=== PATIENT | male | born 1950 | race Caucasian/White ===

== ENCOUNTER 2025-01-06 09:56 | Emergency (ER) | payer OTHER, SELFPAY ==
--- NOTE | ~2025-01-06 | XR_ITS ---
.EXAMINATION: XR HUMERUS, RIGHT CLINICAL INFORMATION: fall COMPARISON: None available. TECHNIQUE: AP and lateral views of the right humerus. FINDINGS: Degenerative changes in the acromioclavicular joint and the right glenoid. No acute cortical disruption. No gross lytic or blastic lesions. No periosteal bone reaction. XR/XR humerus RT IMPRESSION: No acute fracture, right humerus. Degenerative changes right acromioclavicular joint and right glenoid. Electronically signed by: Gautam Olivares MD 01/06/2025 11:49 AM NICOLE GONZALEZ
--- NOTE | ~2025-01-06 | XR_ITS ---
.EXAMINATION: XR SHOULDER, RIGHT CLINICAL INFORMATION: FALL, UNABLE TO LIFT R ARM, SHOULDER PAIN COMPARISON: None available. TECHNIQUE: AP external rotation, Grashey, scapular Y, and axillary views of the right shoulder. FINDINGS: No acute cortical disruption or malalignment. Degenerative changes in the acromioclavicular joint, glenohumeral joint and greater tuberosity. No lytic or blastic lesions. XR/XR shoulder RT min 2V IMPRESSION: Degenerative changes without acute fracture or dislocation. Electronically signed by: Gautam Olivares MD 01/06/2025 10:50 AM NICOLE GONZALEZ
[2025-01-06 10:27] VITALS: BP 138/70; PULSE 75; RESP 18; TEMP 36.6; O2SAT 96; BMI 25.1
--- NOTE | 2025-01-06 11:01 | ED.EXTPRO ---
HPI - Extremity Problem General Chief complaint: Extremity Injury, Upper Stated complaint: fall 3/ , shoulder inj Time Seen by Provider: 01/06/25 11:01 Source: patient and old records reviewed Mode of arrival: ambulatory Limitations: no limitations History of Present Illness ED Provider: LINA MCKENZIE Narrative: 74 yo male with fall on Monday while using compressor to fill a tire. He tripped and fall on R side hitting R shoulder. He is R hand dom. He is not on blood thinners had no head or neck pain. He denies headstrike or LOC. He has no other injuries. He notes he cannot lift the arm due to pain. MD Complaint: extremity pain and joint pain Onset (ago): day(s) (2) Pain Consistency: constant Location: right and upper extremity Quality: aching Radiation: none Relieving factors: immobilization Exacerbating factors: range of motion and palpation Associated symptoms: denies other symptoms Context: other (fall) Related Data Allergies Allergy/AdvReac Type Severity Reaction Status Date / Time latex Allergy Rash Verified 01/06/25 10:30 Review of Systems Review of Systems: Constitutional : No Fever, No Chills ENT/Mouth : No Ear Pain, No Hoarseness, No sore throat Eyes: No Eye Pain, No Swelling, No Redness, No Foreign Body Cardiovascular : No Chest Pain, No SOB Respiratory : No Cough, No Dyspnea Gastrointestinal : No Nausea, No Vomiting, No Diarrhea, No abdominal Pain Genitourinary : No Dysuria, No Hematuria Musculoskeletal : positive joint pain, No Myalgias, No Joint Swelling Skin : No Skin lacerations, No rash Neuro : No Weakness, No Numbness, No Loss of Consciousness, No Dizziness, No Headache All other systems reviewed and are negative [facility] Past Medical History Attestation statement: The following information was validated with the patient. Source: old records reviewed Medical History (Updated 01/06/25 @ 11:36 by Ariela Lopez DO) No pertinent past medical history Social History Social History (Updated 01/06/25 @ 11:13 by Ariela Lopez DO) Patient Tobacco Use Status: Never used Tobacco Advance Directives: No Advance Directives Information Provided: Yes Physical Exam Vital Signs: Vital Signs: Last Vital Signs Temp 98 F 01/06/25 10:27 Pulse 75 01/06/25 10:27 Resp 18 01/06/25 10:27 BP 138/70 03/03/25 10:27 Pulse Ox 96 01/06/25 10:27 O2 Del Method Room Air 01/06/25 10:27 BMI result Body Mass Index 25.1 Appearance: Alert. Oriented X3. No acute distress. Eyes: Pupils equal, round and reactive to light. ENT: Pharynx normal. atraumatic Neck: Normal inspection. Neck supple. no midline ttp CVS: Normal heart rate and rhythm. Pulses normal. Respiratory: No respiratory distress. Breath sounds normal. Abdomen: Soft and nontender. Skin: Skin warm and dry. Normal skin color. Extremities: No lower extremity edema. R shoulder ttp along AC joint no ttp in elbow, wrist, hand he is NV intact cannot abduct arm Neuro: Oriented X 3. No motor deficit. No sensory deficit. CN2-12 intact Medical Decision Making Medical Decision Making MDM Narrative: 74 yo male with no PMH of blood thinners here with c/o R shoulder pain after fall 2 days ago no head or neck pain no LOC no rib pain or abdominal pain no back pain or midline ttp has isolated pain to R shoulder at this time suspect possible fracture/sprain/rotator cuff injury. HE is NV intact Differential Diagnosis Differential Diagnoses: The differential diagnosis associated with the presentation includes fracture, sprain, rotator cuff injury Independent Interpretation I performed an independent interpretation of an: Plain X-Ray Radiology Impression Discussion of test interpretation with radiology: I have reviewed the radiologist's reading. External Record Review External record reviewed: Outpatient record Procedures Orthopedic Splinting/Casting Injury #1: Side: right Upper Extremity Injury Location: shoulder Upper Extremity Immobilizer: sling/shoulder immobilizer Additional Comments: NV intact Discharge Plan Discharge Clinical Impression: Shoulder sprain Qualifiers: Encounter type: initial encounter Shoulder sprain type: unspecified sprain Laterality: right Qualified Code(s): S43.401A - Unspecified sprain of right shoulder joint, initial encounter Patient Disposition: Home, Self-Care Instructions: Shoulder Sprain (ED) Additional Instructions: xrays show no broken bones there is concern for rotator cuff injury please follow up with orthopedics sling for 5 days but can take off to sleep and shower - move wrist and elbow so you do not get stiff take tylenol and motrin for pain as needed return for worsening pain, numbness, weakness, cold blue hand FINDINGS: Degenerative changes in the acromioclavicular joint and the right glenoid. No acute cortical disruption. No gross lytic or blastic lesions. No periosteal bone reaction. XR/XR humerus RT IMPRESSION: No acute fracture, right humerus. Degenerative changes right acromioclavicular joint and right glenoid. Referrals: [facility] [Provider Group] Print Language: [place]ese
--- NOTE | 2025-01-06 11:13 | MHC.EDTECH ---
righ shoulder sling in place, pt awaiting xray
[2025-01-06 12:05] VITALS: BP 138/70; PULSE 75; RESP 18; TEMP 36.6; O2SAT 96
--- OUTSIDE RECORDS SUMMARY | 2025-01-06 13:17 | XMS_ITS | Clinical Summary ---
Author Organization [facility] Address [address] [place] [phone] Phone Care Team Providers Care Event Planner Name Role Phone Maninder Mckeon MD Primary Care Provider Allergies Active Allergy Reactions Criticality Noted Date Comments Latex Medium 01/13/2021 Medications amLODIPine-chris zepril (LOTREL) 10-20 mg per capsule Take 1 capsule by mouth 1 (one) time each day. Active docusate sodium (COLACE) 100 mg tablet Take by mouth. Active levothyroxine (SYNTHROID, LEVOTHROID) 112 mcg tablet Take 1 tablet (112 mcg total) by mouth. Active omeprazole (PriLOSEC) [address] capsule Take 1 capsule (20 mg total) by mouth. Active polyethylene glycol (GoLYTELY) 236-22.74-6.74 -5.86 gram solution Take 4,000 mL by mouth. 02/03/2021 Active MILK THISTLE ORAL Take by mouth. Active multivit-min/fe rrous fumarate (MULTI VITAMIN ORAL) Take by mouth. Active docosahexaenoic acid/epa (FISH OIL ORAL) Take by mouth. Active pravastatin (PRAVACHOL) 40 mg tablet Take 1 tablet (40 mg total) by mouth 1 (one) time each day. 02/07/2024 Active tadalafiL (CIALIS) 20 mg tablet Take by mouth. 04/15/2024 Active acetaminophen (TYLENOL) 325 mg tablet Take 2 tablets (650 mg total) by mouth. 12/06/2023 Active lidocaine-silic one, adhesive 5 % combo pack Apply topically. 12/06/2023 Active diclofenac (VOLTAREN) 1 % topical gel Apply topically. 12/06/2023 Active B complex (B Complex-Vitamin B12) tablet Take by mouth 1 (one) time each day. Active magnesium oxide (MAG-OX) 400 mg magnesium tablet Take 1.25 tablets (500 mg total) by mouth 1 (one) time each day. 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 01/13/2021 Depressive disorder 01/13/2021 Diverticulosis of colon 01/13/2021 Essential (primary) hypertension 01/13/2021 GERD (gastroesophageal reflux disease) Hemorrhoids 01/13/2021 Hyperlipidemia 01/13/2021 Hypothyroidism 01/13/2021 Post traumatic stress disorder 01/13/2021 Encounters Date Type Department Care Team Description 10/16/2024 3:56 PM EST Anesthesia Event [facility] [address] [place] [phone] Froylan Espinoza MD Piela, Robert C, MD 10/16/2024 3:02 PM EST - 10/16/2024 11:59 PM EST Hospital Encounter [facility] [address] [place] [phone] Soco Babcock MD Steele, Matthew G, CRNA 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 Discharge Disposition: Home or Self Care from Last 3 Months Surgical History Surgery Date Site/Laterality Comments COLONOSCOPY 2018 PROCEDURE: HISTORICAL COLONOSCOPY; COMMENT: colon polyp ESOPHAGOGASTRODUODENOSCOPY 2018 PROCEDURE: GA ESOPHAGOGASTRODUODENOSCOPY TRANSORAL DIAGNOSTIC; COMMENT: sullivan's esophagus Medical History Medical History Date Comments Hyperlipidemia DX:Hyperlipidemi a 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 DX:Neoplasm of uncertain beh avior of prostate Alcohol dependence (CMS/HCC) 03/04/2021 DX: Alcohol dependence (HCC) Anxiety 01/13/2021 DX:Anxiety 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 01/13/2021 DX: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 Carcinoma in situ of prostate 01/13/2021 DX :Carcinoma in situ of prostate Depressive disorder 01/13/2021 DX:Depressiv e disorder Diverticulosis of colon 01/13/2021 DX:Diver ticulosis of colon GERD (gastroesophageal reflux disease) DX:GERD (gastroesophageal reflux disease) Essential (primary) hypertension 01/13/2021 DX:Essential (primary) hypertension Hemorrhoids 01/13/2021 DX:Hemorrhoids Hypothyroidism 01/13/2021 DX:Hypothyroidis m Post traumatic stress disorder 01/13/2021 D X:Post traumatic stress disorder Tinnitus 03/04/2021 DX:Tinnitus Impaired fasting glucose 03/04/2021 DX:Impa ired fasting glucose Chronic back pain 03/04/2021 DX:Chronic gertrude k pain Tubular adenoma 03/04/2021 DX:Tubular adeno ma; COMMENT: On colonoscopy 04/30/2018 Family History Relation Name Status Comments Mother Social History Tobacco Use Types Packs/Day Years Used Date Smoking Tobacco: Never Smokeless Tobacco: Never Alcohol Use Standard Drinks/Week Comments Not Currently 2 (1 standard drink = 0.6 oz pur e alcohol) Interpersonal Safety Answer Date Record ed Physical Abuse 10/16/2024 Verbal Abuse 10/16/2024 Sex and Gender Information Value Date Recorded Sex Assigned at Not on file Legal Sex Male 1:43 AM EST Gender Identity Not on file Sexual Orientation Not on file Obstetrics History Last Filed Vital Signs Vital Sign Reading Time Taken Comments Blood Pressure 104/92 10/16/2024 4:24 PM EST Pulse 67 10/16/2024 4:24 PM EST Temperature 36.4 ??C (97.6 ??F) 10/16/2024 3:39 PM ES T Respiratory Rate 23 10/16/2024 4:24 PM EST Oxygen Saturation 98% 10/16/2024 4:24 PM EST Inhaled Oxygen Concentration - - Weight 79.4 kg (175 lb) 10/16/2024 3:39 PM EST Height 177.8 cm (5' 10 ) 10/16/2024 3:39 PM EST Body Mass Index 25.11 10/16/2024 3:39 PM EST Plan of Treatment Health Maintenance Due Date Last Done Comments Pneumococcal Vaccine: 50+ Years (1 of 1 - PCV) 2001 Zoster Vaccines (1 of 2) 2001 DTaP,Tdap,and Td Vaccines (3 - Td or Tdap) 12/29/2019 12/29/2009, 02/01/2007 Cholesterol Screening (Lipid Panel) 10/16/2022 Depression Screening 10/16/2022 Hepatitis C Screening 10/16/2022 Medicare Annual Wellness Visit 10/16/2022 Social Influencers of Health Screening 10/16/2022 Hypertension/CHF/CAD Annual BMP Blood Test 10/22/2022 Falls Risk Assessment 10/16/2025 10/16/2024 Colorectal Cancer Screening: Colonoscopy 03/24/2026 COVID-19 Vaccine Completed 07/19/2024, , 02/02/2022, Additional history exists Influenza Vaccine Completed 07/25/2024, , 07/15/2021, Additional history exists RSV Immunization Patients 60+ Years Old Completed 08/02/2024 HIB Vaccines Aged Out No longer eligi ble based on patient's age to complete this topic HPV Vaccines Aged Out No longer eligi ble based on patient's age to complete this topic Hepatitis A Vaccines Aged Out No long er eligible based on patient's age to complete this topic Hepatitis B Vaccines Aged Out No long er eligible based on patient's age to complete this topic IPV Vaccines Aged Out No longer eligi ble based on patient's age to complete this topic MMR Vaccines Aged Out No longer eligi ble based on patient's age to complete this topic Meningococcal ACWY Vaccine Aged Out N o longer eligible based on patient's age to complete this topic Meningococcal B Vacine Aged Out No lo nger eligible based on patient's age to complete this topic RSV Immunization Patients Under 20 months Aged Out No longer eligible based on patient's age to complete this topic Varicella Vaccines Aged Out No longer eligible based on patient's age to complete this topic Procedures Procedure Name Priority Date/Time Associated Diagnosis Comments EGD Routine 10/16/2024 4:07 PM EST 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 ? - Large hiatal hernia. ? 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 Biopsied. ? - Tortuous esophagus. Recommendation: ?- Discharge patient to home. ? - Await pathology results. ? - Follow an antireflux regimen. ? - Use a proton pump inhibitor PO daily for the rest of ? the patient's life. Narrative 10/16/2024 4:12 PM EST [facility] GI Patient Name: Tirso Witt Procedure Date: 10/16/2024 3:57 PM Date of : 1950 Age: 74 Gender: Male Note Status: Finalized Attending MD: Soco Babcock MD, Procedure Date No Time: 10/16/2024 Procedure: ? Upper GI endoscopy Indications: ? Surveillance for malignancy due to personal history of ? Sullivan's esophagus Providers: ? Soco Babcock MD Referring MD: ?Soco Babcock MD Medicines: ? Monitored Anesthesia Care Complications: ? No immediate complications. Estimated blood loss: ? Minimal. Estimated Blood Loss: ? Estimated blood loss was minimal. Procedure: ? Pre-Anesthesia Assessment: ? - Prior to the procedure, a History and Physical was ? performed, and patient medications and allergies were ? reviewed. The patient is competent. The risks and ? benefits of the procedure and the sedation options and ? risks were discussed with the patient. All questions ? were answered and informed consent was obtained. ? Patient identification and proposed procedure were ? verified by the physician, the nurse, the professor of french ? and the transfill technician in the pre-procedure area in the ? endoscopy suite. Mental Status Examination: alert and ? oriented. Airway Examination: normal oropharyngeal ? airway and neck mobility. Respiratory Examination: ? clear to auscultation. CV Examination: normal. ? Prophylactic Antibiotics: The patient does not require ? prophylactic antibiotics. Prior Anticoagulants: The ? patient has taken no anticoagulant or antiplatelet ? agents. ASA Grade Assessment: II - A patient with mild ? systemic disease. After reviewing the risks and ? benefits, the patient was deemed in satisfactory ? condition to undergo the procedure. The anesthesia ? plan was to use monitored anesthesia care (MAC). ? Immediately prior to administration of medications, ? the patient was re-assessed for adequacy to receive ? sedatives. The heart rate, respiratory rate, oxygen ? saturations, blood pressure, adequacy of pulmonary ? ventilation, and response to care were monitored ? throughout the procedure. The physical status of the ? patient was re-assessed after the procedure. ? After obtaining informed consent, the endoscope was ? passed under direct vision. Throughout the procedure, ? the patient's blood pressure, pulse, and oxygen ? saturations were monitored continuously. The Olympus ? Gastroscope was introduced through the mouth, and ? advanced to the second part of duodenum. The upper GI ? endoscopy was accomplished without difficulty. The ? patient tolerated the procedure well. Findings: ?The examined duodenum was normal. ? A large hiatal hernia was found. The proximal extent ? of the gastric folds (end of tubular esophagus) was 35 ? cm from the incisors. The hiatal narrowing was 43 cm ? from the incisors. The Z-line was 33 cm from the ? incisors. ? The esophagus and gastroesophageal junction were ? examined with white light and narrow band imaging ? (NBI). There were esophageal mucosal changes secondary ? to established short-segment Sullivan's disease. These ? changes involved the mucosa at the upper extent of the ? gastric folds (35 cm from the incisors) extending to ? the Z-line (33 cm from the incisors). Sulphur- colored ? mucosa was present. The maximum longitudinal extent of ? these esophageal mucosal changes was 2 cm in length. ? Mucosa was biopsied with a cold forceps for histology. ? One specimen bottle was sent to pathology. Estimated ? blood loss was minimal. ? The lower third of the esophagus was moderately ? tortuous. Procedure Code(s): ? --- Professional --- ? 71911, Esophagogastroduodenoscopy, flexible, ? transoral; with biopsy, single or multiple Diagnosis Code(s): ? --- Professional --- ? 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 All rights reserved. The codes documented in this report are preliminary and upon order runner review may be revised to meet current compliance requirements. Soco Babcock MD 10/16/2024 4:12:11 PM This report has been signed electronically.Soco Babcock MD Number of Addenda: 0 Note Initiated On: 10/16/2024 3:57 PM Scope In: Scope Out: ? Endoscopy Department at [facility] - [address] [place] [address], ? [place] [address] Procedure Note Soco Babcock MD - 10/16/2024 [facility] GI Patient Name: Tirso Witt Procedure Date: 10/16/2024 3:57 PM Date of : 1950 Age: 74 Gender: Male Note Status: Finalized Attending MD: Soco Babcock MD, Procedure Date No Time: 10/16/2024 Procedure: Upper GI endoscopy Indications: Surveillance for malignancy due to personal historyof Sullivan's esophagus Providers: Soco Babcock MD Referring MD: Soco Babcock MD Medicines: Monitored Anesthesia Care Complications: No immediate complications. Estimated blood loss: Minimal. Estimated Blood Loss: Estimated blood loss was minimal. Procedure: Pre-Anesthesia Assessment: - Prior to the procedure, a History and Physicalwas performed, and patient medications and allergieswere reviewed. The patient is competent. The risks and benefits of the procedure and the sedation optionsand risks were discussed with the patient. Allquestions were answered and informed consent was obtained. Patient identification and proposed procedure were verified by the physician, the nurse, theanesthetist and the transfill technician in the pre-procedure area in the endoscopy suite. Mental Status Examination: alertand oriented. Airway Examination: normal oropharyngeal airway and neck mobility. Respiratory Examination: clear to auscultation. CV Examination: normal. Prophylactic Antibiotics: The patient does notrequire prophylactic antibiotics. Prior Anticoagulants: The patient has taken no anticoagulant or antiplatelet agents. ASA Grade Assessment: II - A patient withmild systemic disease. After reviewing the risks and benefits, the patient was deemed in satisfactory condition to undergo the procedure. The anesthesia plan was to use monitored anesthesia care (MAC). Immediately prior to administration of medications, the patient was re-assessed for adequacy to receive sedatives. The heart rate, respiratory rate, oxygen saturations, blood pressure, adequacy of pulmonary ventilation, and response to care were monitored throughout the procedure. The physical status ofthe patient was re-assessed after the procedure. After obtaining informed consent, the endoscope was passed under direct vision. Throughout theprocedure, the patient's blood pressure, pulse, and oxygen saturations were monitored continuously. TheOlympus Gastroscope was introduced through the mouth, and advanced to the second part of duodenum. The upperGI endoscopy was accomplished without difficulty. The patient tolerated the procedure well. Findings: The examined duodenum was normal. A large hiatal hernia was found. The proximalextent of the gastric folds (end of tubular esophagus) was35 cm from the incisors. The hiatal narrowing was 43cm from the incisors. The Z-line was 33 cm from the incisors. The esophagus and gastroesophageal junction were examined with white light and narrow band imaging (NBI). There were esophageal mucosal changessecondary to established short-segment Sullivan's disease.These changes involved the mucosa at the upper extent ofthe gastric folds (35 cm from the incisors) extendingto the Z-line (33 cm from the incisors).Sulphur-colored mucosa was present. The maximum longitudinal extentof these esophageal mucosal changes was 2 cm inlength. Mucosa was biopsied with a cold forceps forhistology. One specimen bottle was sent to pathology.Estimated blood loss was minimal. The lower third of the esophagus was moderately tortuous. 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 All rights reserved. The codes documented in this report are preliminary and upon order runner reviewmay be revised to meet current compliance requirements. Soco Babcock MD 10/16/2024 4:12:11 PM This report has been signed electronically.Soco Babcock MD Number of Addenda: 0 Note Initiated On: 10/16/2024 3:57 PM Scope In: Scope Out: Endoscopy Department at [facility] - [address] [place] [id number] IMPRESSION: - Normal examined duodenum. - Large hiatal hernia. - Esophageal mucosal changes secondary toestablished short-segment Sullivan's disease. Biopsied. - Tortuous esophagus. Recommendation: - Discharge patient to home. - Await pathology results. - Follow an antireflux regimen. - Use a proton pump inhibitor PO daily for the restof the patient's life. us Soco Babcock MD GI~PROCEDURE ORDERABLES Fin al Result * Tissue exam (10/16/2024 4:03 PM EST) Addendum Tissue was requested by Dr. Babcock and sent to [facility], [place], [place] (CLIA#[id number] ), for TissueCypher-Bar ret's Esophagus. Their report is as follows: Risk Class* LOW Risk Score 0.0 5-year Probability 0.20% of Progression Digitally signed by Darryn Conrad DO, FCAP([id number]) Date: 12 04 2024 (Full report on file) 12/04/2024 4:37 PM EST [facility] Addendum electronically signed by Charo Gonzales MD on 12/04/2024 at 4:37 PM Final Diagnosis A. Esophagus, lower esophagus biopsies: - Sullivan's mucosa. - Negative for dysplasia. 12/04/2024 4:37 PM EST [facility] Gross Description A. Esophagus, lower esophagus bx's: Labeled lower esophagus . Received in formalin, are four irregular soft, white-santana to brown tissue fragments, approximately ranging from 0.2 cm to 0.4 cm in greatest diameters, which are wrapped in paper and submitted in toto in one cassette, four pieces, multiple levels. dvb/SL 12/04/2024 4:37 PM EST [facility] Disclaimer Unless otherwise specified, all tissue is 10% NB formalin fixed and paraffin embedded. 12/04/2024 4:37 PM EST [facility] Tissue Esophageal structure / Unknown 10/16/2024 4:03 PM EST 10/17/2024 5:12 AM EST Soco Babcock MD LAB PATHOLOGY ORDERABLES Ed ited Result - Final [facility] [address] [place] [address], [place] [phone] * External clinical lab (10/16/2024) Provider [facility] BLOOD ORDERABLES Fin al Result from Last 3 Months Insurance MEDICARE [facility] Care Teams Event Planner Relationship Specialty Start Date End Date Maninder Mckeon MD [address] [place], [place] PCP - General 12/12/23
== END 2025-01-06 12:06 | disposition home or self-care (01) ==
PROVIDERS: Emergency Provider Emergency Medicine
DX: S43.401A Unspecified sprain of right shoulder joint, initial encounter (principal); W01.0XXA Fall on same level from slipping, tripping and stumbling without subsequent striking against object, initial encounter; Y93.89 Activity, other specified; Y92.9 Unspecified place or not applicable; Y99.9 Unspecified external cause status
CPT/HCPCS: 73030; 73060; 99283

== ENCOUNTER → 2025-01-06 10:35 | Outpatient (BNV) | payer SELFPAY | PROVIDERS: Emergency Provider Emergency Medicine; Visit Provider Radiology Diagnostic Radiology | DX: M19.011 Primary osteoarthritis, right shoulder (principal) | CPT/HCPCS: 73030; 73060 ==

== ENCOUNTER 2025-01-27 10:21 | Outpatient (AMB) | payer OTHER, SELFPAY ==
--- NOTE | 2025-01-27 10:23 | A.OFFVIS_ITS ---
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 He shows up today with a sling for support but it causes his neck to hurt. Patient reports her tripped and fell over the compressor hose that he uses to fill a tire. ROM is limited and when he is resting his pain is tolerable. He states that he was able to take pain medication but he stopped it since he started to get an upset stomach. 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 Witt is a 74-year-old right-hand dominant male who presents to the office today for evaluation of a right shoulder injury that he sustained on 01/04/2025. He states that he was putting air in his daughter's tires and after putting the compressor way he tripped and fell landing directly onto the right shoulder. Ever since then he has had increase in pain and decrease in range of motion. He has been wearing a sling mostly since the date of injury but states that he does occasionally come out to perform gentle range of motion. 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 Abduction to 45 degrees. External rotation to end range passively. Pain with cross-body reach. 2/5 strength with empty can. NVI. Assessment & Plan Assessment & Plan (1) Rotator cuff arthropathy of right shoulder: Code(s): M12.811 - Other specific arthropathies, not elsewhere classified, right shoulder Category: Medical (2) Contusion of right shoulder: Code(s): S40.011A - Contusion of right shoulder, initial encounter Category: Medical Plan Mr. Witt is a 74-year-old right-hand dominant male who presents to the office today for evaluation of a right shoulder injury that he sustained on 01/04/2025. He states that he was putting air in his daughter's tires and after putting the compressor way he tripped and fell landing directly onto the right shoulder. Ever since then he has had increase in pain and decrease in range of motion. He has been wearing a sling mostly since the date of injury but states that he does occasionally come out to perform gentle range of motion. While in the office today, we discussed the role of cortisone injections, physical therapy and MRI imaging. Patient would like to defer on cortisone injections at this time. Therefore, he will be referred to physical therapy. At the end of 4-6 weeks of physical therapy the patient will contact me via telephone and let me know how he is feeling. If he is not seeing any improvement in the next step would be MRI imaging to further evaluate the right shoulder and surrounding structures. Follow up will be after physical therapy, sooner if needed. X-rays of the right shoulder which were obtained on 01/06/2025 and were reviewed by me, Cheryl Butt PA-C, revealed no acute fracture dislocation. There is slight high riding head of the humerus. Coding Level of Care Code New Pt Level 4 (94292) Diagnoses Rotator cuff arthropathy of right shoulder M12.811 Contusion of right shoulder S40.011A
[2025-01-27 10:28] VITALS: BMI 25.1
== END 2025-01-27 10:40 | disposition home or self-care (01) ==
LOC: HO.HOS 10:23
PROVIDERS: Visit Provider Physician Assistant
DX: M12.811 Other specific arthropathies, not elsewhere classified, right shoulder (principal); S40.011A Contusion of right shoulder, initial encounter
CPT/HCPCS: 99203

== ENCOUNTER → 2025-01-27 10:21 | Outpatient (BNVA) | payer OTHER, SELFPAY | PROVIDERS: Visit Provider Physician Assistant | DX: M12.811 Other specific arthropathies, not elsewhere classified, right shoulder (principal); S40.011A Contusion of right shoulder, initial encounter; X58.XXXA Exposure to other specified factors, initial encounter; Y93.9 Activity, unspecified; Y92.9 Unspecified place or not applicable; Y99.9 Unspecified external cause status | CPT/HCPCS: 99202 ==

== ENCOUNTER 2025-03-27 13:00 | Outpatient (RCR) | payer OTHER, SELFPAY ==
--- NOTE | 2025-02-20 14:32 | MHC.PT.EP ---
[facility] [place] Office [place] Office [place] Office [address] Andry Calvo [address] [phone] F: [phone] F: [phone] F: [phone] F: [phone] Physical Therapy Plan of Care Date of Evaluation: 02/20/25 Date of Surgery: Diagnosis: unspecified sprain of R shoulder joint. Assessment: Patient is a 74 year old R handed male who presents with s/s consistent with unspecified sprain of right shoulder joint. He is retired but likes to stay active at home and in the community. He exercises regularly and loves to boat and bike. Patient past medical history includes neck surgery and prostate cancer. Current impairments include pain, posture, ROM, strength, activity tolerance and functional mobility. Functional limitations include decreased ability to dress, lift, carry, reach, push, pull and sleep. Patient is motivated with good rehab potential. Skilled PT will address impairments and functional limitations in order to achieve goals. Frequency and Duration: The patient will be seen 2x/week for 5 weeks Short Term Goals: I with HEP - 2weeks AROM ER to 60 - 3 weeks b/l ER with YTB to 30 degrees b/l - 3 weeks Compensation Associate Goals: AROM flexion and scaption to 140, ER to 70 - 5 weeks Strength 4/5 grossly for ER/IR - 5 weeks Max pain with dressing, sleeping 2/10 - 5 weeks SPADI 40/130 - 5 weeks Treatment Plan: Modalities to reduce pain, spasms and effusion. Manual therapy to restore motion and function. Therapeutic exercise to improve strength and flexibility. Neuromuscular re-education for posture and balance. Therapeutic activities to return to functional activities of daily living. Electronically signed by: Stan Hong, PT Please sign and return to therapist. Thank you for your referral.
--- NOTE | 2025-05-27 09:46 | MHC.PT.DC ---
[facility] [place] Office [place] Office [place] Office [address] Andry Calvo [address] [phone] F: [phone] F: [phone] F: [phone] F: [phone] Physical Therapy Discharge Report Diagnosis: unspecified sprain of R shoulder joint. Date of Surgery: Date of Evaluation: 02/20/25 Date of Discharge: 04/07/25 Treatments to Date: 5 Cancellations to Date: No Shows to Date: Discharge Status: Independent with HEP Patient Elected to Stop Recommend MD Follow-up Discharge Summary: 03/27/25: pt lack of progress and presentation continue to be consistent with significant cuff/shoulder pathology. It does not make sense at this time to continue with skilled PT as progress likely with be minimal. We are referring back to Ortho for discernment of best next steps in his management. 03/25; Pt A sh flex and abd cont to be limited and painful. Discussed finishing the sharri visits and then F/U with MD to persue further imaging. 03/11; Pt ER not responding to therapy. Pt passive ROM, better than A. Pt working hard trying to get muscles stronger. Pt fatigued after isometrics and U.B. 03/05/25: pt still with difficulty passing neutral with resistance with ER ROM. continue to progress as tolerated. if not progress in 2-3 more visits, we will refer for MRI. 03/04/25: pt progressing well with skilled PT. soreness noted. ER resisted - unable to pass neutral. (cuff tear suspected) Patient is a 74 year old R handed male who presents with s/s consistent with unspecified sprain of right shoulder joint. He is retired but likes to stay active at home and in the community. He exercises regularly and loves to boat and bike. Patient past medical history includes neck surgery and prostate cancer. Current impairments include pain, posture, ROM, strength, activity tolerance and functional mobility. Functional limitations include decreased ability to dress, lift, carry, reach, push, pull and sleep. Patient is motivated with good rehab potential. Skilled PT will address impairments and functional limitations in order to achieve goals. Electronically signed by: Stan Hong, PT Please sign and return to therapist. Thank you for your referral.
== END 2025-05-27 09:47 | disposition home or self-care (01) ==
LOC: HO.PTCHIC 13:00
PROVIDERS: PCP Nurse Practitioner Gerontology; Visit Provider Physician Assistant
DX: M12.811 Other specific arthropathies, not elsewhere classified, right shoulder (principal); S40.011A Contusion of right shoulder, initial encounter
CPT/HCPCS: 97110; 97140; 97162

== ENCOUNTER → 2025-04-14 16:31 | Outpatient (BNV) | payer OTHER, SELFPAY | PROVIDERS: Visit Provider Radiology Diagnostic Radiology | DX: M75.121 Complete rotator cuff tear or rupture of right shoulder, not specified as traumatic (principal); M67.813 Other specified disorders of tendon, right shoulder | CPT/HCPCS: 73221 ==

== ENCOUNTER 2025-04-14 16:37 | Outpatient (REF) | payer OTHER, SELFPAY ==
--- NOTE | ~2025-04-14 | MR_ITS ---
EXAMINATION: MR SHOULDER WITHOUT CONTRAST, RIGHT CLINICAL INFORMATION: Rotator cuff tear , fell January 04 2025, right shoulder pain and numbness since then COMPARISON: X-ray performed January 06, 2025 TECHNIQUE: MRI of the shoulder without contrast was performed on a high-field scanner. FINDINGS: Rotator Cuff: There is a full-thickness tear of supraspinatus and infraspinous tendons which are retracted to the level of the AC joint, 5 cm. Subscapularis is intact of the lesser tuberosity. However, it demonstrates increased signal. Additionally, there is linear high signal 2 cm in that extends to the deep surface and possibly extends to the superficial surface consistent with deep undersurface tear versus full-thickness and retracted tear. Labrum: Posterior labrum is degenerated and frayed. Long biceps tendon: Long biceps tendon is in the biceps groove. It appears thickened with increased central signal. The intra-articular tendon is also thickened with increased signal. Acromioclavicular joint: AC joint is intact. There are degenerative hypertrophic changes. Acromial morphology is flat, type I. Axillary pouch: Excellent pouch is irregular with increased signal on all imaging sequences. However, it appears intact. There is small amount of joint fluid, that is somewhat complex in the axillary pouch. Articular cartilage: The partial full-thickness articular cartilage defect is noted in the medial humeral head and central glenoid is noted. There is subtle partial-thickness cartilage loss across the lateral humeral head. There is diffuse thinning of glenoid articular cartilage. Bones/Marrow: Mild reactive marrow signal changes present at the AC joint. Minimal reactive marrow signal changes present at the lateral anatomic neck of humerus. Soft tissues: There is moderate fatty streaking and atrophy involving supraspinatus muscle. There is also feathery fluid signal along the myotendinous junction of supraspinatus tendon. There is moderate fatty streaking of infraspinatus muscle. There is mild edema like signal in the deep portion of subscapularis muscle and mild fatty streaking. MR/MR shoulder RT wo con IMPRESSION: Rotator cuff tear: Supraspinatus and infraspinatus tendons are torn and retracted 5 cm. There is moderate atrophy and fatty streaking of supraspinatus muscle. There is edema along the myotendinous junction that could be related to ongoing atrophy versus a grade 1 strain. Infraspinatus demonstrates moderate fatty streaking. Additionally, there is hypertrophic tendinopathy of subscapularis tendon. Additionally, there is a deep undersurface versus full thickness nonretracted tear of the tendinous portion of subscapularis. Moderate AC joint arthropathy. Moderate to severe degenerative changes are present in the glenohumeral joint with full-thickness cartilage defect in the medial humeral head and central glenoid. Possible adhesive capsulitis: Axillary pouch is irregular with increased intrinsic signal which can be present in asymptomatic individuals but is also present in those with adhesive capsulitis. Alternatively, this could be related to a grade 2 sprain. Degenerated and partially torn long biceps tendon. Electronically signed by: Ramone Farrar MD 04/14/2025 06:02 PM EDT
--- OUTSIDE RECORDS SUMMARY | 2025-04-14 17:50 | XMS_ITS | Clinical Summary ---
Author Organization [facility] Address [address] [place] [phone] Phone Care Team Providers Care Television Inspector Name Role Phone Maninder Mckeon MD Primary [...] Problem Noted Date Diagnosed Date Alcohol dependence ([facility] V24, [facility] V28) Chronic back pain 03/04/2021 Impaired fasting glucose 03/04/2021 Tinnitus 03/04/2021 Tubular adenoma 03/04/2021 Overview (12/28/2023): On colonoscopy 04/30/2018 Anxiety 01/13/2021 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 01/13/2021 Depressive disorder 01/13/2021 Diverticulosis of colon 01/13/2021 Essential (primary) hypertension 01/13/2021 GERD (gastroesophageal reflux disease) Hemorrhoids 01/13/2021 Hyperlipidemia 01/13/2021 Hypothyroidism 01/13/2021 Post traumatic stress disorder 01/13/2021 Surgical History Surgery Date Site/Laterality Comments COLONOSCOPY 2018 PROCEDURE: HISTORICAL COLONOSCOPY; COMMENT: colon polyp ESOPHAGOGASTRODUODENOSCOPY 2018 PROCEDURE: [place] ESOPHAGOGASTRODUODENOSCOPY TRANSORAL DIAGNOSTIC; COMMENT: sullivan's esophagus Medical History Medical History Date Comments Hyperlipidemia DX:Hyperlipidemi a 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 DX:Neoplasm of uncertain beh avior of prostate Alcohol dependence ([facility] V24, [facility] V28) 03/04/2021 DX:Alcohol dependence ([facility]) Anxiety 01/13/2021 DX:Anxiety 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 [...] Health Maintenance Due Date Last Done Comments Hepatitis A Vaccines (1 of 2 - Risk 2-dose series) 1970 Pneumococcal Vaccine: 50+ Years (1 of 1 - PCV) 2001 Zoster Vaccines (1 of 2) 2001 DTaP,Tdap,and Td Vaccines (3 - Td or Tdap) 12/29/2019 12/29/2009, 02/01/2007 Cholesterol Screening (Lipid Panel) 10/16/2022 Depression Screening 10/16/2022 Hepatitis C Screening 10/16/2022 Medicare Annual Wellness Visit 10/16/2022 Social Influencers of Health Screening 10/16/2022 Hypertension/CHF/CAD Annual BMP Blood Test 10/22/2022 COVID-19 Vaccine ( season) 2025 07/19/2024, 07/19/2022, 02/02/2022, Additional history exists Falls Risk Assessment 10/16/2025 10/16/2024 Colorectal Cancer Screening: Colonoscopy 03/24/2026 Influenza Vaccine Completed 07/25/2024, , 07/15/2021, Additional history exists RSV Immunization Adult Patients Completed 08/02/2024 HIB Vaccines Aged Out No [...] age to complete this topic Meningococcal B Vaccine Aged Out No l onger eligible based on patient's age to complete this topic RSV Immunization Patients Under 20 months Aged Out No longer eligible based on patient's age to complete this topic Varicella Vaccines Aged Out No longer eligible based on patient's age to complete this topic Insurance MEDICARE [facility] Care Teams Television Inspector Relationship Specialty Start Date End Date Maninder Mckeon MD [address] Erick SandovalClementsPAUL PCP - General 12/12/23
== END 2025-04-14 16:38 | disposition home or self-care (01) ==
LOC: HO.MRI 16:37
PROVIDERS: Visit Provider Physician Assistant
DX: S40.011A Contusion of right shoulder, initial encounter (principal); M12.811 Other specific arthropathies, not elsewhere classified, right shoulder
CPT/HCPCS: 73221

== ENCOUNTER 2025-06-26 10:12 | Outpatient (AMB) | payer OTHER, SELFPAY ==
--- NOTE | 2025-06-26 10:15 | MHC.OFFVIS ---
Vital Signs 06/26/25 10:23 Height 5 ft 10 in Weight 175 lb BMI 25.1 Intake Visit Reasons: OV - right shoulder MRI review Intake Note: Tirso is a 74 year old right hand dominant male who presents today for an MRI review of his Right Shoulder. On 01/04/25 he was putting an air compressor away when he tripped and fell landing directly on the right shoulder. patient stated he has no concerns and is not experiencing any pain at this time Allergies latex Allergy (Verified 06/26/25 10:19) Rash HPI HPI OV - right shoulder MRI review: Details: Tirso is a 74 year old right hand dominant male who presents today for an MRI review of his Right Shoulder. On 01/04/25 he was putting an air compressor away when he tripped and fell landing directly on the right shoulder. patient stated he has no concerns and is not experiencing any pain at this time. He cannot however use her right hand to perform daily tasks that require lifting his hand to or above shoulder level. When he does this he develops pain quickly. He feels that his shoulder functioned ok prior to the fall. He cannot recall any particular incident in the past that may have casued a shoulder injury. He enjoys working around the house. 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 Abduction to 45 degrees. 4-/5 EC Recruitment required to abduct to 70 deg. Passive ROM: 40/90/140 Results Reviewed Results Reviewed: I personally reviewed the MR images. IMPRESSION: Rotator cuff tear: Supraspinatus and infraspinatus tendons are torn and retracted 5 cm. There is moderate atrophy and fatty streaking of supraspinatus muscle. There is edema along the myotendinous junction that could be related to ongoing atrophy versus a grade 1 strain. Infraspinatus demonstrates moderate fatty streaking. Additionally, there is hypertrophic tendinopathy of subscapularis tendon. Additionally, there is a deep undersurface versus full thickness nonretracted tear of the tendinous portion of subscapularis. Moderate AC joint arthropathy. Moderate to severe degenerative changes are present in the glenohumeral joint with full-thickness cartilage defect in the medial humeral head and central glenoid. Assessment & Plan Assessment & Plan (1) Rotator cuff arthropathy of right shoulder: Code(s): M12.811 - Other specific arthropathies, not elsewhere classified, right shoulder Category: Medical Plan: This is an active and healthy 74 yo RHD M with right shoulder OA and RTC arthropathy. He has had nonspecific complaints for years but this is worsened over the past 6 months. Prior to his fall he was more functional. He has been engaging in PT exercises and has been doing better with respect to pain but is still very weak. I reviewed his imaging with him and his examined explained the options to him. I do not believe that arthroscopic rotator cuff repair would be possible. I explained this to him. I think his options are continue nonoperative treatment with strengthening and activity modification versus reverse total shoulder. I presented these options to him and he would like to proceed forward with shoulder arthroplasty. He is relatively healthy and active. He is right-hand dominant. Our goal would be for him to easily get his hand to the back of his head. I described this to him. He is amenable to this surgery. I explained in detail of surgery and I explained the risks, benefits and alternatives. I clearly described the risk of stiffness, infection, nerve injury, aseptic loosening or need for further surgery and the complications associated with revision surgery in his setting. I also described the medical complications that all surgical patients are risk for. He expressed understanding and we will begin the preoperative clearance process. I answered his questions to the best of my abilities. Coding Level of Care Code Est Pt Level 4 (93303) Diagnoses Rotator cuff arthropathy of right shoulder M12.811
[2025-06-26 10:23] VITALS: BMI 25.1
--- OUTSIDE RECORDS SUMMARY | 2025-06-26 11:42 | XMS_ITS | Clinical Summary ---
Author Organization [facility] Address [address] [facility] [address] [place] [phone] Phone Care Team Providers Care Dispatch Supervisor Name Role Phone Stephanie Reyes MD Primary Care Provider Medications No known medications Social History Tobacco Use Types Packs/Day Years Used Date Smoking Tobacco: Never Assessed Education Answer Date Recorded Are you interested in more education? Not on carlos e 03/03/2023 Are you concerned about learning? Not on file 03/03/2023 No 03/03/2023 No 03/03/2023 Digital Access Answer Date Recorded No 04/01/2023 No 04/01/2023 Reliable internet access at home? Not on file 04/01/2023 Device with a working camera? Not on file Sex and Gender Information Value Date Recorded Sex Assigned at Male 11/24/2020 9:43 AM EST Legal Sex Male 9:23 AM EST Gender Identity Male 11/24/2020 9:43 AM EST Sexual Orientation Straight 11/24/2020 9: 43 AM EST Last Filed Vital Signs Vital Sign Reading Time Taken Comments Blood Pressure 157/90 01/26/2021 1:24 PM EDT Pulse 111 01/26/2021 1:24 PM EDT Temperature - - Respiratory Rate - - Oxygen Saturation - - Inhaled Oxygen Concentration - - Weight 79.4 kg (175 lb) 01/26/2021 1:24 PM EDT Height 177.8 cm (5' 10 ) 01/26/2021 1:24 PM EDT Body Mass Index 25.11 01/26/2021 1:24 PM EDT Plan of Treatment Health Maintenance Due Date Last Done Comments LIPID PANEL 1951 DEPRESSION SCREENING 1963 SMOKING Hx and SMOKELESS TOBACCO SCREENING 1964 HEPATITIS C SCREENING 1969 COLOGUARD 1996 COLONOSCOPY 1996 COLORECTAL CANCER SCREENING 1996 FIT TEST 1996 FOBT 1996 SIGMOIDOSCOPY 1996 VIRTUAL COLONOSCOPY 1996 PNEUMOCOCCAL VACCINES (50+ years) (1 of 1 - PCV) 2001 ZOSTER VACCINES (1 of 2) 2001 Adult Td,Tdap Booster 12/29/2019 12/29/2009 , 02/01/2007 COVID-19 VACCINE (2 - 2023-2 5 season) 2024 01/17/2021 RSV VACCINE (1 - 1-dose 75+ series) 2026 HEPATITIS A VACCINES Aged Out No long er eligible based on patient's age to complete this topic HIB VACCINES Aged Out No longer eligi ble based on patient's age to complete this topic MENINGOCOCCAL VACCINES (ACWY) Aged Out No longer eligible based on patient's age to complete this topic MENINGOCOCCAL VACCINES (B) Aged Out N o longer eligible based on patient's age to complete this topic Medical Devices Not on file Insurance MEDICARE PART A & B [facility] MEDICARE PART A & B MEDICARE PART A & B Member Subscriber Plan / Payer (Ef fective 2018-Present) Name:Tirso Witt Member ID:[id number] Relation to Subscriber:Self Name:Tirso Witt Subscriber ID:[id number] Payer ID:[id number] Group ID:Not on file Type:Medicare Address: [employer] [address] [employer] MEDICARE PART A & B MEDICARE PART A & B Member Subscriber Plan / Payer (Ef fective 2018-Present) Name:Tirso Witt Member ID:[id number] Relation to Subscriber:Self Name:Tirso Witt Subscriber ID:[id number] Payer ID:[id number] Group ID:Not on file Type:Medicare Address: [employer] [address] MEDICARE PART A & B MEDICARE PART A & B MEDICARE PART A & B MEDICARE PART A & B [facility] Address: [facility] [address] [place] [address] Care Teams Dispatch Supervisor Relationship Specialty Start Date End Date Stephanie Reyes MD [address] [place] [phone] PCP - General Internal Medicine 11/24/20 Additional Source Comments The information contained in this document represents components of the legal health record. It is not the complete legal health record.[facility]
--- OUTSIDE RECORDS SUMMARY | 2025-06-26 11:42 | XMS_ITS | Clinical Summary ---
Author Organization [facility] Address [address] [place] [phone] Phone Care Team Providers Care Garden Equipment Mechanic Name Role Phone Maninder Mckeon MD Primary [...] Problem Noted Date Diagnosed Date Alcohol dependence ([facility] V24, [facility] V28) Chronic back pain 03/04/2021 Impaired [...] COLONOSCOPY; COMMENT: colon polyp ESOPHAGOGASTRODUODENOSCOPY 2018 PROCEDURE: [place] ESOPHAGOGASTRODUODENOSCOPY TRANSORAL DIAGNOSTIC; COMMENT: sullivan's esophagus Medical History Medical History Date Comments Hyperlipidemia DX:Hyperlipidemi a 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 DX:Neoplasm of uncertain beh avior of prostate Alcohol dependence ([facility] V24, [facility] V28) 03/04/2021 DX:Alcohol dependence ([facility]) Anxiety 01/13/2021 DX:Anxiety Sullivan's esophagus without [...] 67 10/16/2024 4:24 PM EST Temperature 36.4 C (97.6 F) 10/16/2024 3:39 PM EST Respiratory Rate 23 10/16/2024 4:24 PM EST [...] 12/29/2009, 02/01/2007 Cholesterol Screening (Lipid Panel) 10/16/2022 Hepatitis C Screening 10/16/2022 Medicare Annual Wellness Visit 10/16/2022 Social Influencers of Health Screening 10/16/2022 Hypertension/CHF/CAD Annual BMP Blood Test 10/22/2022 Depression Screening 11/06/2024 COVID-19 Vaccine ( season) 2025 07/19/2024, 07/19/2022, 02/02/2022, Additional history exists Influenza Vaccine (#1) 2025 , 07/15/2022, 07/15/2021, Additional history exists Falls Risk Assessment 10/16/2025 10/16/2024 Colorectal Cancer Screening: Colonoscopy 03/24/2026 RSV Immunization Adult Patients Completed 08/02/2024 HIB [...] age to complete this topic Insurance MEDICARE [facility] [address] Care Teams Garden Equipment Mechanic Relationship Specialty Start Date End Date Maninder Mckeon MD [address] Erick [place]s [place] PCP - General 12/12/23
== END 2025-06-26 11:39 | disposition home or self-care (01) ==
LOC: HO.HOS 10:13
PROVIDERS: Visit Provider Orthopaedic Surgery
DX: M12.811 Other specific arthropathies, not elsewhere classified, right shoulder (principal)
CPT/HCPCS: 99214

== ENCOUNTER → 2025-06-26 10:12 | Outpatient (BNVA) | payer OTHER, SELFPAY | PROVIDERS: Visit Provider Orthopaedic Surgery | DX: Z71.2 Person consulting for explanation of examination or test findings (principal); M25.511 Pain in right shoulder; M12.811 Other specific arthropathies, not elsewhere classified, right shoulder | CPT/HCPCS: 99212 ==

== ENCOUNTER → 2025-08-19 13:07 | Outpatient (BNVA) | payer OTHER, SELFPAY | DX: Z01.818 Encounter for other preprocedural examination (principal) ==

== ENCOUNTER → 2025-08-19 14:03 | Outpatient (BNV) | payer OTHER, SELFPAY | PROVIDERS: Visit Provider Internal Medicine Cardiovascular Disease | DX: R94.31 Abnormal electrocardiogram [ECG] [EKG] (principal); Z01.810 Encounter for preprocedural cardiovascular examination | CPT/HCPCS: 93010 ==

== ENCOUNTER 2025-09-04 09:31 | Outpatient (REF) | payer OTHER, SELFPAY ==
--- NOTE | ~2025-09-04 | CT_ITS ---
EXAMINATION: CT SHOULDER WITHOUT CONTRAST, RIGHT CLINICAL INFORMATION: M12.819 - Other specific arthropathies, not elsewhere classified COMPARISON: Previous right shoulder and humerus x-ray January 2025 and right shoulder MRI April 2025 TECHNIQUE: Axial images through the right shoulder without IV contrast. Sagittal and coronal reconstructions obtained. Exam performed according to Tournier Protocol for surgical planning. This CT examination was performed using dose optimization techniques as appropriate, variously including the following: *Automated exposure control *Adjustment of mA and/or kV according to patient size (this includes techniques or standardized protocols for targeted exams where dose is matched to indication/reason for exam; i.e. extremities or head) *Use of iterative reconstruction technique DLP 2 6 7 mgy/cm FINDINGS: No fracture or dislocation or bone lesion. High humeral head with respect to the glenoid. Arthritis at the glenohumeral and acromioclavicular joints with joint space narrowing and osteophyte formation. No joint effusion. No soft tissue mass. Small right axillary lymph nodes. No enlarged lymph nodes. 3 mm right upper lobe nodule axial image 140 series 3. 3 mm peripheral or subpleural right upper lobe nodule axial image 186 series 3. 3 mm peripheral or subpleural right upper lobe nodule axial image 270 series 3. 3 mm peripheral or subpleural right upper lobe medial nodule adjacent to the mediastinum axial images through 16 of series 3. 4 x 7 mm peripheral or subpleural right upper lobe nodule adjacent to the major fissure axial image 242 series 3. 3 x 4 mm peripheral subpleural right middle lobe nodule adjacent to the minor fissure axial image 305 and 319 series 3. 2 x 5 mm peripheral subpleural right lower lobe nodule adjacent to the major fissure axial image 331 series 3. Minimal subsegmental atelectasis or scarring in the dependent right upper lobe axial image 185 series 3. There is coronary artery calcification. There may be aortic valve calcification as well. Degenerative changes of the lower cervical spine and postsurgical changes from ACDF. Degenerative changes of the thoracic spine. CT/CT shoulder RT wo IV con IMPRESSION: Right shoulder arthritis with a CT for surgical planning. Coronary artery and probable aortic valve calcification. Small pulmonary nodules measuring up to 7 mm. Fleischner Criteria for pulmonary nodule follow-up SOLID NODULES: Low risk patient: <6mm: no follow-up 6-8mm: 6 month follow-up CT >8mm: PET/Biopsy/ 3 month follow-up CT High risk patient: <6mm: 12 month follow-up CT 6-8mm: 6 month follow-up CT >8mm: PET/Biopsy/ 3 month follow-up CT SUB-SOLID/GROUNDGLASS NODULES: All patients: > or = 6mm: 6 month follow-up CT *Please note that in patients in the following categories, the Fleischner criteria do not apply: Immunocompromised, lung cancer screening population, age below 35, and patients with known malignancy Electronically signed by: Vianney Burciaga MD 09/04/2025 10:33 AM EDT
--- OUTSIDE RECORDS SUMMARY | 2025-09-04 11:00 | XMS_ITS | Encounter Summary ---
Author Organization [facility] Address [address] [place] [phone] Phone Care Team Providers Care Case Therapist Name Role Phone Stephanie Reyes MD Primary Care Provider [phone] Encounter Details Date Type Department Care Team (Late st Contact Info) Description 12/04/2020 Procedure Pass [facility] Network Architect [place] [address] [place] [address] Social History Tobacco Use Types Packs/Day Years [...] on filedocumented in this encounter Care Teams Case Therapist Relationship Specialty Start Date End Date Stephanie Reyes MD [address] [place] [address] PCP - General Internal Medicine 11/24/20 documented as of this encounter Additional Source Comments The information contained in this document represents components of the legal health record. It is not the complete legal health record.[facility]
--- OUTSIDE RECORDS SUMMARY | 2025-09-04 11:00 | XMS_ITS | Encounter Summary ---
Author Organization [facility] Address [address] [place] [phone] Phone Care Team Providers Care Inspector Welded Parts Name Role Phone Stephanie Reyes MD Primary Care Provider [phone] Encounter Details Date Type Department Care Team (Latest Contact Info) Description 12/02/2020 Transcribe Orders [facility] [address] [address] [place] [address] [place] [phone] [email or web address] Prostate cancer (Primary Dx) Social History Tobacco [...] prostate documented in this encounter Care Teams Inspector Welded Parts Relationship Specialty Start Date End Date Stephanie Reyes MD [address] [place] [address] PCP - General Internal Medicine 11/24/20 documented as of this encounter Additional Source Comments The information contained in this document represents components of the legal health record. It is not the complete legal health record.[facility]
--- OUTSIDE RECORDS SUMMARY | 2025-09-04 11:00 | XMS_ITS | Clinical Summary ---
Author Organization [facility] Address [address] [facility] [address] [place] [phone] Phone Care Team Providers Care Offshore Wind Turbine Technician Name Role Phone Stephanie Reyes MD Primary [...] file Insurance MEDICARE PART A & B [facility] MEDICARE PART A & B [facility] MEDICARE PART A & B MEDICARE PART A & B MEDICARE PART A & B MEDICARE PART A & B MEDICARE PART A & B Member Subscriber Plan / Payer (Ef fective 2018-Present) Name:Tirso Witt Member ID:[id number] Relation to Subscriber:Self Name:Tirso Witt Subscriber ID:[id number] Payer ID:[id number] Group ID:Not on file Type:Medicare Address: [employer] [address] MEDICARE PART A & B MEDICARE PART A & B [facility] Care Teams Offshore Wind Turbine Technician Relationship Specialty Start Date End Date Stephanie Reyes MD [address] [place] [address] PCP - General Internal Medicine 11/24/20 Additional Source Comments The information contained in this document represents components of the legal health record. It is not the complete legal health record.[facility]
--- OUTSIDE RECORDS SUMMARY | 2025-09-04 11:00 | XMS_ITS | Clinical Summary ---
Author Organization [facility] Address [address] [place] [phone] Phone Care Team Providers Care Supervisor Cabinetmaker Name Role Phone Maninder Mckeon MD Primary [...] Problem Noted Date Diagnosed Date Alcohol dependence ([facility] V24, [facility] V28) Chronic back pain 03/04/2021 Impaired fasting [...] COLONOSCOPY; COMMENT: colon polyp ESOPHAGOGASTRODUODENOSCOPY 2018 PROCEDURE: LA ESOPHAGOGASTRODUODENOSCOPY TRANSORAL DIAGNOSTIC; COMMENT: sullivan's esophagus Medical History Medical History Date Comments Hyperlipidemia DX:Hyperlipidemi a 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 DX:Neoplasm of uncertain beh avior of prostate Alcohol dependence ([facility] V24, [facility] V28) 03/04/2021 DX:Alcohol dependence ([facility]) Anxiety 01/13/2021 DX:Anxiety 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 [...] Safety Answer Date Record ed Physical Abuse Unrecognized value 10/16/2024 Verbal Abuse Unrecognized value 10/16/2024 Sex and Gender Information Value Date [...] of 2 - Risk 2-dose series) 1969 Cholesterol Screening (Lipid Panel) 10/16/2022 Hepatitis C Screening 10/16/2022 Medicare Annual Wellness Visit 10/16/2022 Social Influencers of Health Screening 10/16/2022 Hypertension/CHF/CAD Annual BMP Blood Test 10/22/2022 DTaP,Tdap,and Td Vaccines (6 - Td or Tdap) 11/06/2024 11/06/2014, 11/06/2014, 11/20/2012, Additional history exists Depression Screening 11/06/2024 COVID-19 Vaccine ( season) 2025 07/19/2024, 08/05/2022, 07/19/2022, Additional history exists Influenza Vaccine (#1) 2025 , 11/06/2023, 08/06/2023, Additional history exists Falls Risk Assessment 10/16/2025 10/16/2024 Colorectal Cancer Screening: Colonoscopy 03/24/2026 Pneumococcal Vaccine: 50+ Years Completed 08/17/2018, 10/27/2017, 05/20/2013 Zoster Vaccines Completed 05/26/2021, 04/2021, 08/06/2013, Additional history exists RSV Immunization Adult Patients [...] age to complete this topic Insurance MEDICARE [facility] Care Teams Supervisor Cabinetmaker Relationship Specialty Start Date End Date Maninder Mckeon MD [address] [place] PCP - General 12/12/23
== END 2025-09-04 09:32 | disposition home or self-care (01) ==
LOC: HO.CT 09:31
PROVIDERS: Visit Provider Physician Assistant
DX: M12.811 Other specific arthropathies, not elsewhere classified, right shoulder (principal)
CPT/HCPCS: 73200

== ENCOUNTER → 2025-09-04 09:33 | Outpatient (BNV) | payer OTHER, SELFPAY | PROVIDERS: Visit Provider Radiology Diagnostic Radiology | DX: M19.011 Primary osteoarthritis, right shoulder (principal); R91.8 Other nonspecific abnormal finding of lung field | CPT/HCPCS: 73200 ==

== ENCOUNTER 2025-09-04 11:02 | Outpatient (AMB) | payer OTHER, SELFPAY ==
--- NOTE | 2025-09-04 09:39 | MHC.OFFVIS ---
Vital Signs 09/04/25 11:41 Height 5 ft 10 in Weight 175 lb BMI 25.1 BP 123/73 Blood Pressure Location Lt brachial Position Sitting Pulse 71 Pulse Source Monitor Intake Visit Reasons: Pre-Op: R rTSA w/NE 09/10/25 Intake Note: Tirso is a 74 year old right hand dominant male who presents today for a preoperative visit to discuss upcoming right rTSA, scheduled with Dr. Guadalupe on 09/10/25. Pain management agreement reviewed and signed. Allergies latex Allergy (Verified 08/19/25 13:50) Rash acetaminophen (From Percocet) Adverse Reaction (Verified 09/04/25 11:05) Nausea and Vomiting oxycodone (From Percocet) Adverse Reaction (Verified 09/04/25 11:05) Nausea and Vomiting Medication List - Last Reconciled 09/04/25 by Pradip Mantilla PA-C acetaminophen 650 mg PO Q6H PRN amlodipine-benazepril 10-20 mg 1 cap PO DAILY levothyroxine 112 mcg PO DAILY magnesium oxide 500 mg PO DAILY omega 2-eka-qpv-fish oil 1,200 (144-216) mg (Fish Oil) 1 cap PO DAILY omeprazole 20 mg PO DAILY pravastatin 40 mg PO BEDTIME tadalafil (Cialis) 20 mg PO DAILY PRN vitamin B complex 1 cap PO DAILY HPI HPI Pre-Op: R rTSA w/NE 09/10/25: Details: 74-year-old gentleman presents to the office today for preop clearance. He is scheduled for a right reverse total shoulder arthroplasty with Dr. Guadalupe on 09/10/2025. On 01/04/25 he was putting an air compressor away when he tripped and fell landing directly on the right shoulder. Since the injury he cannot use his right hand to perform daily tasks that require lifting his hand to or above shoulder level. MRI of the right shoulder was performed which was significant for Rotator cuff tear: Supraspinatus and infraspinatus tendons are torn and retracted 5 cm. There is moderate atrophy and fatty streaking of supraspinatus muscle. 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 1. Patient may proceed with scheduled surgery No symptoms indicating ACS or decompensated pulmonary distress No further cardiopulmonary evaluation was advised 2. Cardiac assessment asymptomatic/>4 mets EKGs unchanged going back to 2010 with treadmill nuclear study (2019) Revised cardiac risk index 0 points, -0.5% risk of major cardiac event 3. Pulmonary assessment Risk of pulmonary complications by ARISCAT analysis: intermediate risk 4.BHARAT assessment negative 5.prediabets monitor glucose [facility] op [facility] Medical History (Updated 08/19/25 @ 13:26 by Rochelle Garcia RN) Prediabetes Vertigo Prostate cancer Hx of radiation therapy Arthritis Lumbar herniated disc Back pain Anemia Constipation Thyroid disease Barretts esophagus GERD (gastroesophageal reflux disease) Concussion Elevated cholesterol HTN (hypertension) Surgical History History of tonsillectomy and adenoidectomy Hx of hand surgery Hx of cervical spine surgery Hx of prostatectomy History of esophagogastroduodenoscopy (EGD) H/O colonoscopy Social History (Updated 01/27/25 @ 10:28 by Carmela Raymond) Are you a primary manager managed care to a significant other at home: No Do you presently have visiting nurse or other home services: No Alcohol intake: current Alcohol intake frequency: a few times a week Patient Tobacco Use Status: Never used Tobacco Current occupational status: employed 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 Review of Systems Const All systems reviewed & are unremarkable except as noted in HPI and below Physical Exam Vital Signs: Last Vital Signs Pulse 71 09/04/25 11:41 BP 123/73 09/04/25 11:41 BMI result Body Mass Index 25.1 Const General: cooperative, healthy appearing, comfortable, no acute distress, well developed and alert Orientation/consciousness: patient oriented x3 HEENT Head: Yes normal to inspection, Yes normocephalic and Yes atraumatic Eyes General: appearance normal, both eyes and all related structures Neck Neck: Yes normal visual inspection and Yes no lymphadenopathy Resp Effort & Inspection: normal respiratory effort and able to speak in complete sentences Cardio Rate: regular rate Peripheral pulses: Peripheral pulses 2+ throughout GI Inspection: Yes normal to inspection Palpation (GI): Soft to palpation Skin General skin exam: no rashes or lesions noted Lesions: no lesions Rashes: no rashes Neuro General: patient oriented x3 Extrem Other: Right shoulder: skin intact, no open wounds Forward flexion to 45 degrees. Abduction to 45 degrees. 4-/5 EC Recruitment required to abduct to 70 deg. Passive ROM: 40/90/140 Psych Appearance: grossly normal Mental Status: mental status grossly normal Assessment & Plan Assessment & Plan (1) Rotator cuff arthropathy of right shoulder: Code(s): M12.811 - Other specific arthropathies, not elsewhere classified, right shoulder Category: Medical Plan: Lisa has exhausted all conservative measures consisting of lifestyle modifications, physical therapy, analgesics and use of assisted devices and continues to have significant limitations in daily activities along with decreased quality of life. Given the patient's desire to improve their quality of life, surgical intervention consisting of joint replacement surgery is recommended at this time.? We discussed the procedure in detail today; which includes pre op preparation with labs and reviewing patients medication regimen prior to surgery. He will take his levothyroxine with a small sip of water the morning of surgery. He will hold NSAIDs beginning 5 days before surgery. He was sent to the lab to obtain his Type and Screen. I discussed at length the post op course which includes physical therapy services in the hospital along with the discharge routine and the patients plan upon discharge. Patient would like to be DC home with VNA services. I explained to the patient, once they are DC home, they will receive VNA services which will include PT / OT 2-3x per week. We also discussed their choice for outpatient PT once they are discharged from home PT. He would like to attend [facility] in [place]. An order was placed and he will contact their office to make an appt to begin after his first post op appt. Post op DVT ppx was also discussed and the considering the patient does not have a h/o DVT/PE and is a non smoker, we will place him on ASA 325 mg tabs po bid. I reviewed with the patient their post op pain medication regimen along with the detailed wean program. The patient did express understanding of this and agreed to the narcotic policy. He does have concerns with post op pain medication stating Oxycodone makes him extremely nauseous. He states he has not had relief with Vicodin or tramadol. He has not tried Dilaudid. Lastly, I discussed with the patient the risks to the procedure. Risks including but not limited to infection, injury to surrounding nerves, tissue , bone, small and large vessels, stiffness, aseptic loosening, fracture, dislocation, amputation, DVT/PE along with intraoperative complications including but not limited to . The patient does express understanding, all questions were answered and the patient would like to proceed? with right reverse total shoulder arthroplasty with Dr. Guadalupe. Consents were signed and dated while in the office today.? Post-Operative Recovery Notes: DVT ppx : Aspirin 325 mg p.o. b.i.d. x6 weeks Post op pain medication: Trial Oxycoedone or Vicodin with anti nausea medications Hospital DC plan: Home with VNA Physical Therapy: [facility] in [place] he was given information today to call and make an appointment to begin after September 25 Patient was fit for a sling in the office today Orders: Orders Type and Screen Today Z01.818 - Encounter for other preprocedural examination Coding Level of Care Code Est Pt Level 3 (45878) Complex EM visit Add On G2211 Diagnoses Rotator cuff arthropathy of right shoulder M12.811
[2025-09-04 11:41] VITALS: BP 123/73; PULSE 71; BMI 25.1
== END 2025-09-04 15:48 | disposition home or self-care (01) ==
LOC: HO.HOS 11:02
PROVIDERS: Visit Provider Physician Assistant
DX: M12.811 Other specific arthropathies, not elsewhere classified, right shoulder (principal)
CPT/HCPCS: 99024

== ENCOUNTER 2025-09-10 07:48 | Day surgery (SDC) | payer OTHER, SELFPAY ==
--- OUTSIDE RECORDS SUMMARY | 2025-07-23 17:52 | XMS_ITS | Clinical Summary ---
Author Organization [facility] Address [address] [facility] [address] [place] [phone] Phone Care Team Providers Care Marine Pilot Name Role Phone Stephanie Reyes MD Primary [...] Adult Td,Tdap Booster 12/29/2019 12/29/2009 , 02/01/2007 INFLUENZA VACCINE (#1) 2025 7, 12/29/2009 COVID-19 VACCINE (2 - 2024-2 6 season) 2025 01/17/2021 RSV VACCINE (1 - 1-dose 75+ [...] file Insurance MEDICARE PART A & B [facility] MEDICARE PART A & B [facility] MEDICARE PART A & B MEDICARE PART A & B MEDICARE PART A & B MEDICARE PART A & B MEDICARE PART A & B Member Subscriber Plan / Payer (Ef fective 2018-Present) Name:Tirso Witt Member ID:[id number] Relation to Subscriber:Self Name:Tirso Witt Subscriber ID:[id number] Payer ID:[id number] Group ID:Not on file Type:Medicare Address: [employer] [address] MEDICARE PART A & B MEDICARE PART A & B [facility] Care Teams Marine Pilot Relationship Specialty Start Date End Date Stephanie Reyes MD [address] [place] [address] PCP - General Internal Medicine 11/24/20 Additional Source Comments The information contained in this document represents components of the legal health record. It is not the complete legal health record.[facility]
--- OUTSIDE RECORDS SUMMARY | 2025-07-23 17:52 | XMS_ITS | Encounter Summary ---
Author Organization [facility] Address [address] [place] [phone] Phone Care Team Providers Care Developer Architect Name Role Phone Stephanie Reyes MD Primary Care Provider [phone] Encounter Details Date Type Department Care Team (Latest Contact Info) Description 12/02/2020 Transcribe Orders [facility] [address] [address] [address] [place] [id number] [email or web address] Prostate cancer (Primary Dx) Social History Tobacco Use Types Packs/Day Years Used Date Smoking Tobacco: Never Assessed Sex and Gender Information Value Date Recorded Sex Assigned at Male 11/24/2020 9:43 AM EST Legal Sex Male 9:23 AM EST Gender Identity Male 11/24/2020 9:43 AM EST Sexual Orientation Straight 11/24/2020 9: 43 AM EST documented as of this encounter Plan of Treatment Pending Results Name Type Priority Associated Diagnoses Date /Time MRI Abdomen Outside With Interpretation Or Consult Imaging Routine Prostate cancer 12/02/2020 8:34 AM EST Scheduled Orders Name Type Priority Associated Diagnoses Orde r Schedule MRI Abdomen Outside With Interpretation Or Consult Imaging Routine Prostate cancer Expected: 12/02/2020, Expires: 03/02/2021 documented as of this encounter Visit Diagnoses Diagnosis Prostate cancer- Primary Malignant neoplasm of prostate documented in this encounter Care Teams Developer Architect Relationship Specialty Start Date End Date Stephanie Reyes MD [address] [place] [address] PCP - General Internal Medicine 11/24/20 documented as of this encounter Additional Source Comments The information contained in this document represents components of the legal health record. It is not the complete legal health record.[facility]
--- OUTSIDE RECORDS SUMMARY | 2025-07-23 17:52 | XMS_ITS | Encounter Summary ---
Author Organization [facility] Address [address] [place] [address] Phone Care Team Providers Care Director Business Management Name Role Phone Stephanie Reyes MD Primary Care Provider [phone] Encounter Details Date Type Department Care Team (Late st Contact Info) Description 12/04/2020 Procedure Pass [facility] Document Control Associate [place] [address] [place] [address] Social History Tobacco Use Types Packs/Day Years Used Date Smoking Tobacco: Never Assessed Sex and Gender Information Value Date Recorded Sex Assigned at Male 11/24/2020 9:43 AM EST Legal Sex Male 9:23 AM EST Gender Identity Male 11/24/2020 9:43 AM EST Sexual Orientation Straight 11/24/2020 9: 43 AM EST documented as of this encounter Plan of Treatment Not on file documented as of this encounter Visit Diagnoses Not on filedocumented in this encounter Care Teams Director Business Management Relationship Specialty Start Date End Date Stephanie Reyes MD [address] [place] [address] PCP - General Internal Medicine 11/24/20 documented as of this encounter Additional Source Comments The information contained in this document represents components of the legal health record. It is not the complete legal health record.[facility]
--- NOTE | 2025-08-19 | ECG_ITS ---
Test Reason : preop Blood Pressure : */* mmHG Vent. Rate : 67 BPM Atrial Rate : 67 BPM P-R Int : 186 ms QRS Dur : 92 ms QT Int : 406 ms P-R-T Axes : 49 -2 94 degrees QTcB Int : 429 ms Normal sinus rhythm Inferior infarct , age undetermined Abnormal ECG No previous ECGs available Referred By: Jessica Farmer Electronically Signed By: Chandra Doll
[2025-08-19 12:56] VITALS: BP 133/67; PULSE 71; RESP 18; O2SAT 97; BMI 24.7
--- NOTE | 2025-08-19 13:22 | HO.ANESPROP2 ---
Documented by User: Jessica Farmer NP 08/20/25 08:51 HPI - Anesthesia Eval Consult details Narrative: 74yo M for Right REVERSE Shoulder Total Arthroplasty, 09/10/25 No recent illness No CP/SOB with walking/working [employer] every day GERD: ppi controls PMFSH Active Problems Active Problems: All Active Problems Contusion of right shoulder (Acute) Rotator cuff arthropathy of right shoulder (Acute) Past Medical History Medical History Prediabetes Vertigo Prostate cancer Hx of radiation therapy Arthritis Lumbar herniated disc Back pain Anemia Constipation Thyroid disease Barretts esophagus GERD (gastroesophageal reflux disease) Concussion Elevated cholesterol HTN (hypertension) Family History Family history of problems with anesthesia: No Surgical History Surgical History History of tonsillectomy and adenoidectomy Hx of hand surgery Hx of cervical spine surgery Hx of prostatectomy History of esophagogastroduodenoscopy (EGD) H/O colonoscopy History of Problems with Anesthesia: No (PONV x 1 1979's. No issues with subsequent surgeries) Social History Social History Are you a primary emergency care attendant to a significant other at home: No Do you presently have visiting nurse or other home services: No Alcohol intake: current Alcohol intake frequency: holidays/special occasions only Patient Tobacco Use Status: Never used Tobacco Use of substances other than those prescribed or required for medical reasons: No Have you been hit, kicked, punched, or otherwise hurt by someone within the past year? 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 Meds Allergies Allergy/AdvReac Type Severity Reaction Status Date / Time latex Allergy Rash Verified 08/19/25 13:50 acetaminophen (From Percocet) AdvReac Nausea and Verified 09/04/25 11:05 Vomiting oxycodone (From Percocet) AdvReac Nausea and Verified 09/04/25 11:05 Vomiting Home Medications ?Medication ?Instructions ?Recorded ?Confirmed ?Last Taken ?Type amlodipine 10 mg-benazepril 20 mg 1 cap PO DAILY 06/26/25 09/04/25 Unknown History capsule levothyroxine 112 mcg capsule 112 mcg PO DAILY 06/26/25 09/04/25 Unknown History omeprazole 20 mg capsule,delayed 20 mg PO DAILY 06/26/25 09/04/25 Unknown History release pravastatin 40 mg tablet 40 mg PO BEDTIME 06/26/25 09/04/25 Unknown History tadalafil 20 mg tablet (Cialis) 20 mg PO DAILY PRN Sexual Activity 06/26/25 09/04/25 Unknown History acetaminophen 325 mg tablet 650 mg PO Q6H PRN Pain 08/19/25 09/04/25 Unknown History magnesium oxide 500 mg PO DAILY 08/19/25 09/04/25 Unknown History omega 6-ocg-jva-fish oil 1,200 mg 1 cap PO DAILY 08/19/25 09/04/25 Unknown History (144 mg-216 mg) capsule (Fish Oil) vitamin B complex 1 cap PO DAILY 08/19/25 09/04/25 Unknown History Exam Height,Weight and Vital Signs: Height 5 ft 10 in Weight 78.018 kg Last Vital Signs Pulse 71 08/19/25 12:56 Resp 18 08/19/25 12:56 BP 133/67 08/19/25 12:56 Pulse Ox 97 08/19/25 12:56 O2 Del Method Room Air 08/19/25 12:56 Pertinent Lab Results Pertinent Lab Results: Lab Results 08/19/25 08/19/25 Range/Units 13:00 13:51 WBC 7.0 (4.8-10.8) X10*3/uL RBC 4.68 (4.60-5.80) X10*6/uL Hgb 14.5 (14.0-18.0) g/dl Hct 42.0 (42.0-52.0) % MCV 89.7 (80.0-98.0) fL MCH 31.0 (27.0-33.0) pg MCHC 34.5 (31.0-36.0) g/dl RDW 12.4 (11.0-16.0) % Plt Count 204 (160-400) X10*3/uL MPV 9.4 (9.4-12.4) fL Absolute Nucleated RBC 0.000 (0.0-0.012) X10*3/uL Nucleated RBC % (auto) 0.0 (0.0-0.2) /100WBC Sodium 143 (135-145) mmol/L Potassium 4.3 (3.3-5.1) mmol/L Chloride 107 (96-108) mmol/L Carbon Dioxide 27 (22-29) mmol/L Anion Gap 13 (12-20) BUN 13 (9-16) mg/dL Creatinine 0.91 (0.5-1.4) mg/dL Estim Creat Clear Calc 74.6 Estimated GFR > 60 Random Glucose 126 H (60-115) mg/dL Calcium 9.2 (8.4-10.2) mg/dL Nasal Screen MRSA (PCR) NEGATIVE (Negative) Nasal S. aureus Screen NEGATIVE (Negative) Nasal MRSA/S.aureus Interp SEE NOTE Narrative Narrative: EKG 08/2025 Vent. Rate : 67 BPM Atrial Rate : 67 BPM P-R Int : 186 ms QRS Dur : 92 ms QT Int : 406 ms P-R-T Axes : 49 -2 94 degrees QTcB Int : 429 ms Normal sinus rhythm Inferior infarct , age undetermined Abnormal ECG No previous ECGs available Airway Mallampati Class: II TM Dist: >3cm Neck ROM: Full Partial: Upper and Lower Loose/Missing/Broken Teeth: Yes (#9 implant) Heart: RRR Lungs: CTAB Assessment and Plan Assessment Anesthesia Assessment: Anesthesia Plan Discussed and PAT Visit Final Anesthetic Review Family History of Problems with Anesthesia: No History of Problems with Anesthesia: No (PONV x 1 1979's. No issues with subsequent surgeries) Documented by User: Kalani Griffith MD 09/10/25 09:07 [facility] Past Medical History Medical History Prediabetes Vertigo Prostate cancer Hx of radiation therapy Arthritis Lumbar herniated disc Back pain Anemia Constipation Thyroid disease Barretts esophagus GERD (gastroesophageal reflux disease) Concussion Elevated cholesterol HTN (hypertension) Surgical History Surgical History History of tonsillectomy and adenoidectomy Hx of hand surgery Hx of cervical spine surgery Hx of prostatectomy History of esophagogastroduodenoscopy (EGD) H/O colonoscopy Social History Social History Are you a primary emergency care attendant to a significant other at home: No Do you presently have visiting nurse or other home services: No Alcohol intake: current Alcohol intake frequency: holidays/special occasions only Patient Tobacco Use Status: Never used Tobacco Use of substances other than those prescribed or required for medical reasons: No Have you been hit, kicked, punched, or otherwise hurt by someone within the past year? 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 Meds Allergies Allergy/AdvReac Type Severity Reaction Status Date / Time latex Allergy Rash Verified 08/19/25 13:50 acetaminophen (From Percocet) AdvReac Nausea and Verified 09/04/25 11:05 Vomiting oxycodone (From Percocet) AdvReac Nausea and Verified 09/04/25 11:05 Vomiting Home Medications ?Medication ?Instructions ?Recorded ?Confirmed ?Last Taken ?Type amlodipine 10 mg-benazepril 20 mg 1 cap PO DAILY 06/26/25 09/04/25 Unknown History capsule levothyroxine 112 mcg capsule 112 mcg PO DAILY 06/26/25 09/04/25 Unknown History omeprazole 20 mg capsule,delayed 20 mg PO DAILY 06/26/25 09/04/25 Unknown History release pravastatin 40 mg tablet 40 mg PO BEDTIME 06/26/25 09/04/25 Unknown History tadalafil 20 mg tablet (Cialis) 20 mg PO DAILY PRN Sexual Activity 06/26/25 09/04/25 Unknown History acetaminophen 325 mg tablet 650 mg PO Q6H PRN Pain 08/19/25 09/04/25 Unknown History magnesium oxide 500 mg PO DAILY 08/19/25 09/04/25 Unknown History omega 8-qfo-ope-fish oil 1,200 mg 1 cap PO DAILY 08/19/25 09/04/25 Unknown History (144 mg-216 mg) capsule (Fish Oil) vitamin B complex 1 cap PO DAILY 08/19/25 09/04/25 Unknown History Assessment and Plan Assessment Anesthesia Assessment: Chart Reviewed Final Anesthetic Review NPO: Yes ASA Class: III Final Preanesthetic Review: Meds/Allgs Chart Reviewed, Consent Obtained/Reviewed and Anes Risks/Benef Reviewed Patient Risk: Intermediate Procedure Risk: Intermediate Anesthetic Plan Anesthetic Plan: GA, Regional Block and Agree w/ Assess. and Plan Disposition: Standard PACU
[2025-08-19 14:39] LABS: Hematocrit 42.0 % (42.0-52.0); Hemoglobin 14.5 g/dl (14.0-18.0); Mean Corpuscular HGB Conc 34.5 g/dl (31.0-36.0); Mean Corpuscular Hemoglobin 31.0 pg (27.0-33.0); Mean Corpuscular Volume 89.7 fL (80.0-98.0); NRBC Abs Auto 0.000 X10*3/uL (0.0-0.012); NRBC Pct Auto 0.0 /100WBC (0.0-0.2); Platelet Count 204 X10*3/uL (160-400); Red Blood Count 4.68 X10*6/uL (4.60-5.80); White Blood Count 7.0 X10*3/uL (4.8-10.8)
[2025-08-19 15:13] LABS: Anion Gap 13 (12-20); Blood Urea Nitrogen 13 mg/dL (9-16); Calcium 9.2 mg/dL (8.4-10.2); Carbon Dioxide 27 mmol/L (22-29); Chloride 107 mmol/L (96-108); Creatinine Clr Calc Pharmacy 74.6; Estimated Glomerular Filt Rate > 60; Potassium 4.3 mmol/L (3.3-5.1); Sodium 143 mmol/L (135-145)
[2025-08-19 15:16] LABS: MRSA Nasal PCR NEGATIVE (Negative); SA Nasal PCR NEGATIVE (Negative)
[2025-09-10] VITALS (12 sets, daily range): BP systolic 105–153; BP diastolic 57–81; PULSE 56–84; RESP 12–18; TEMP 35.3–36.9; O2SAT 93–100; BMI 25.1
--- NOTE | ~2025-09-10 | XR_ITS ---
EXAMINATION: XR SHOULDER, RIGHT CLINICAL INFORMATION: ap only COMPARISON: 01/06/2025. CT right shoulder 09/04/2025. TECHNIQUE: Solitary AP view right shoulder. FINDINGS: Solitary AP view of the right shoulder demonstrates a total reverse arthroplasty in place. The humeral, and glenoid components appear aligned, grossly well seated without periprosthetic fracture or gross complication. There are surgical clips in the overlying skin. The imaged right lung is clear. Inferior cervical fusion device incidentally noted. XR/XR shoulder RT 1V IMPRESSION: Status post right shoulder total reverse arthroplasty without definite complication. Electronically signed by: Alfredo Jean-Baptiste MD 09/11/2025 08:40 AM NICOLE
--- NOTE | 2025-09-10 09:19 | MHC.SHP ---
Pre-Procedural Eval Section A - 24 Hr Update-Section A only Date of Service: 09/10/25 The patient is an INPATIENT: No Changes since office visit: No Cold of Flu in the past 2 weeks, No New Medical Problems, No Changes in Medication and No Patient answered all questions The patient has been examined within 24 hours of the surgical procedure. The History & Physical has been completed within 30 days and I have reviewed it.: Yes Section B - Complete if H&P > 30 days Chief Complaint: s/p right reverse total shoulder Allergies: Allergies Allergy/AdvReac Type Severity Reaction Status Date / Time latex Allergy Rash Verified 08/19/25 13:50 oxycodone (From Percocet) AdvReac Nausea and Verified 09/04/25 11:05 Vomiting Plan I have reviewed the history and physical and performed a pertinent physical examination on my patient. No changes have occurred unless specified. Time Spent With Patient Time: Total time managing care of this patient today ____ minutes.
[2025-09-10] MEDS: Lactated Ringers 1,000 ML 100 ML IVCONT ×3 (09:54→14:35)
[2025-09-10] MEDS: oxyCODONE HCl ER 10 MG TAB.ER.12H PO ×2 (14:42→21:37)
--- NOTE | 2025-09-10 15:25 | PHA.MEDREC ---
Pharmacy Consult ? Medication Reconciliation Pharmacy has completed the medication reconciliation. Received list from [place], reviewed what nursing confirmed.
--- NOTE | 2025-09-10 16:25 | P.BOP_ITS ---
Brief Operative Note Date of Service: 09/10/25 Pre-op diagnosis: Right RTC arthropathy Post-op diagnosis: same Procedure: Reverse total shoulder arthroplasty Implants: Tournier 7b stem/+6 centered tray with 39+9 poly with 25 baseplate and 39 glenosphere Surgeon: Roscoe Guadalupe MD Anesthesia: GETA and regional Was an Ross Furnace Operator used for this Procedure?: Yes Ross Furnace Operator: Cheryl Butt Estimated blood loss (mL): 200 IV fluids (mL): 1,000 Pathology: other Condition: stable Disposition: PACU
[2025-09-10 21:53] LABS: Glucose, Whole Blood 157 mg/dL (60-115)
--- NOTE | 2025-09-10 22:23 | P.CONHOSP_ITS ---
History of Present Illness Data of Consult Service Date: 09/10/25 Requesting physician: Roscoe Guadalupe Primary Care Provider: Unknown Physician HPI Reason for consult: medical management Pt is a 74 yo male with a pmhx significant for hypertension, Glasgow's esophagus, hyperlipidemia, Denice's, history of prostate cancer, PTSD and prediabetes, now s/p right reversed total shoulder arthroplasty. Hospitalist consult placed for medical management. Medical history and medications were reviewed with the patient. He has no acute medical concerns currently aside from mild nausea which he reports happens with taking oxycodone. he denies chest pain, shortness of breath, vomiting, fever, chills or urinary symptoms. He has been able to urinate without difficulties. No numbness or tingling in the right hand. He notes earlier he had difficulty with strength in his right thumb however this has improved. Review of Systems 2 Constitutional: Constitutional: Denies chills, Denies fatigue, Denies fever(s) and Denies headache(s) Eyes: Eyes: Denies change in vision ENT: Denies headache(s), Denies nasal discharge and Denies sore throat Cardiovascular: Cardiovascular: Denies chest pain, Denies rapid heart rate, Denies leg edema, Denies lightheadedness and Denies dyspnea Respiratory: Respiratory: Denies chest congestion, Denies cough, Denies dyspnea and Denies wheezing Gastrointestinal: Gastrointestinal: Denies abdominal pain, Reports nausea and Denies vomiting Genitourinary: Genitourinary: Denies dysuria and Denies urinary urgency Musculoskeletal: Musculoskeletal: Denies myalgias Integumentary/Breasts: Skin/Breast: Denies rash Neurologic: Denies confusion and Denies headache(s) Psychiatric: Psychiatric: Denies confusion Endocrine: Endocrine: Denies fatigue Hematologic/Lymphatic: Hematologic/Lymphatic: Denies easy bleeding Allergic/Immunologic: Allergic/Immunologic: Denies wheezing [facility] Medical History Abnormal EKG Prediabetes Vertigo Prostate cancer Hx of radiation therapy Arthritis Lumbar herniated disc Back pain Anemia Constipation Thyroid disease Barretts esophagus GERD (gastroesophageal reflux disease) Concussion Elevated cholesterol HTN (hypertension) Functional capacity: independent ambulation Surgical History History of tonsillectomy and adenoidectomy Hx of hand surgery Hx of cervical spine surgery Hx of prostatectomy History of esophagogastroduodenoscopy (EGD) H/O colonoscopy Social History Household Members: Significant Other Housing: House Are you a primary care team assistant to a significant other at home: No Do you presently have visiting nurse or other home services: No Alcohol intake: current Alcohol intake frequency: holidays/special occasions only Patient Tobacco Use Status: Never used Tobacco Use of substances other than those prescribed or required for medical reasons: No Have you been hit, kicked, punched, or otherwise hurt by someone within the past year? If so, by whom?: No Are you DNR?: No Advance Directives: No Advance Directives Information Provided: Yes Advance Directives on File: No Do you have a plan to hurt others: No Plan Poor oral hygiene: Yes Current occupational status: employed Current occupation: security and the [employer] E/ right hand dominant Meds Allergies Allergy/AdvReac Type Severity Reaction Status Date / Time latex Allergy Rash Verified 08/19/25 13:50 oxycodone (From Percocet) AdvReac Nausea and Verified 09/04/25 11:05 Vomiting Active Medications: Current Medications Acetaminophen (Acetaminophen 325 Mg Tablet) 650 mg PO Q6H PRN PRN Reason: Pain, Mild 1-3,fever,headache Amlodipine Besylate (Amlodipine Besylate 10 Mg Tablet) 10 mg PO DAILY [facility] Last Admin: 09/10/25 17:08 Dose: 10 mg Celecoxib (Celecoxib 200 Mg Capsule) 200 mg PO BID [facility] Last Admin: 09/10/25 21:37 Dose: 200 mg Docusate Sodium (Docusate Sodium 100 Mg Capsule) 100 mg PO BID [facility] Last Admin: 09/10/25 21:37 Dose: 100 mg Hydromorphone HCl (Hydromorphone Hcl 1 Mg/Ml Syringe) 0.25 mg IVPUSH Q4H PRN; Protocol PRN Reason: Pain, Severe (Pain Scale 7-10) Last Admin: 09/10/25 15:44 Dose: 0.25 mg Lactated Ringer's (Lr) 1,000 mls @ 100 mls/hr IVCONT .Q10H [facility] Last Admin: 09/10/25 14:35 Dose: 100 mls/hr Levothyroxine Sodium (Levothyroxine Sodium 112 Mcg Tablet) 112 mcg PO DAILY@0600 [facility] Last Admin: 09/10/25 17:07 Dose: Not Given Lisinopril (Lisinopril 20 Mg Tablet) 20 mg PO DAILY [facility] Last Admin: 09/10/25 17:09 Dose: 20 mg Magnesium Hydroxide (Milk Of Magnesia 30 Ml Oral.Susp) 30 ml PO DAILY PRN PRN Reason: Constipation Magnesium Oxide (Magnesium Oxide 400 Mg Tablet) 400 mg PO DAILY [facility] Naloxone HCl (Naloxone Hcl 0.4 Mg/Ml Vial) 0.04 mg IVPUSH Q5M PRN PRN Reason: Excessive sedation or RR < 8 Omeprazole (Omeprazole 20 Mg Capsule.Dr) 20 mg PO DAILY [facility] Last Admin: 09/10/25 17:08 Dose: 20 mg Ondansetron HCl (Ondansetron Hcl 4 Mg/2 Ml Vial) 4 mg IVPUSH Q8H PRN PRN Reason: Nausea and Vomiting Last Admin: 09/10/25 16:43 Dose: 4 mg Oxycodone HCl (Oxycodone Hcl Immed Release 5 Mg Tablet) 5 mg PO Q4H PRN PRN Reason: Pain, Moderate(Pain Scale 4-6) Oxycodone HCl (Oxycodone Hcl Er 10 Mg Tab.Er.12h) 10 mg PO BID [facility] Last Admin: 09/10/25 21:37 Dose: 10 mg Pravastatin Sodium (Pravastatin Sodium 40 Mg Tablet) 40 mg PO BEDTIME [facility] Last Admin: 09/10/25 21:37 Dose: 40 mg Promethazine HCl (Promethazine Hcl 25 Mg Tablet) 25 mg PO Q4H PRN PRN Reason: Nausea and Vomiting Sodium Chloride (0.9 % Sodium Chloride Flush 3 Ml Syringe) 3 ml IVFLUSH QSHIFT [facility] Last Admin: 09/10/25 14:34 Dose: Not Given Home Medications ?Medication ?Instructions ?Recorded ?Confirmed ?Last Taken ?Type amlodipine 10 mg-benazepril 20 mg 1 cap PO DAILY 06/2609/04/25 Unknown History capsule levothyroxine 112 mcg capsule 112 mcg PO DAILY 5 09/04/25 09/10/25 History omeprazole 20 mg capsule,delayed 20 mg PO DAILY 09/04/25 09/10/25 History release pravastatin 40 mg tablet 40 mg PO BEDTIME 06/26/25 Unknown History tadalafil 20 mg tablet (Cialis) 20 mg PO DAILY PRN Sex ual Activity 06/26/25 09/04/25 Unknown History acetaminophen 325 mg tablet 650 mg PO Q6H PRN Pain 09/04/25 Unknown History magnesium oxide 500 mg PO DAILY 08/19/25 Unknown History omega 9-tsq-sjh-fish oil 1,200 mg 1 cap PO DAILY 08/1909/04/25 Unknown History (144 mg-216 mg) capsule (Fish Oil) vitamin B complex 1 cap PO DAILY 08/19/2508/08 Unknown History Physical Exam 2 Vital Signs and Narrative: Vital Signs: Last Vital Signs Temp 97.2 F 09/10/25 19:17 Pulse 84 09/10/25 19:17 Resp 16 09/10/25 19:17 BP 130/67 09/10/25 19:17 Pulse Ox 93 09/10/25 19:17 O2 Del Method Room Air 09/10/25 19:17 O2 Flow Rate 3 09/10/25 13:45 BMI result Body Mass Index 25.1 General: AOx3, no acute distress Resp: CTA bilaterally CVS: S1, S2, RRR GI: +BS, NT, no distention Skin: Warm, dry Neuro: Cranial nerves II-XII grossly intact bilaterally. Motor grossly intact bilaterally Extremities: No pitting edema. sensation and motor intact RUE. radial pulse 2+ Psych: Appropriate affect Const: General: No confusion Orientation/consciousness: No confusion Neuro: General: No confusion Results Labs 08/19/25 13:51 08/19/25 13:51 Labs: Laboratory Results - last 24 hr 09/10/25 21:49 POC Glucose 157 H Assessment and Plan (1) Rotator cuff arthropathy of right shoulder: Status: Acute Plan Pt is a 74 yo male with a pmhx significant for hypertension, Glasgow's esophagus, hyperlipidemia, Denice's, history of prostate cancer, PTSD and prediabetes, now s/p right reversed total shoulder arthroplasty. s/p R RTSA - POD 0 - pain controlled - plan per ortho HTN - amlodipine-benazepril Glasgow's esophagus - omeprazole Denice's - levothyroxine HLD - statin Prediabetes - monitor POC QIDACHS Thank you for allowing me to participate in the pt's care. Signing off. Please contact the medical team if any questions or concerns.
[2025-09-11] MEDS: Lactated Ringers 1,000 ML 100 ML IVCONT (00:45)
[2025-09-11 04:11] VITALS: BP 125/59; PULSE 75; RESP 18; TEMP 36.5; O2SAT 97
[2025-09-11 05:58] LABS: MANUAL DIFF FLAG NO
[2025-09-11 06:06] LABS: Hematocrit 35.1 % (42.0-52.0); Hemoglobin 11.9 g/dl (14.0-18.0); Imm Gran Abs Auto 0.10 X10*3/uL (0.00-0.03); Imm Gran Pct Auto 0.6 % (0.0-0.4); Lymphocytes Absolute Auto 1.0 X10*3/uL (1.2-4.9); Mean Corpuscular HGB Conc 33.9 g/dl (31.0-36.0); Mean Corpuscular Hemoglobin 30.4 pg (27.0-33.0); Mean Corpuscular Volume 89.5 fL (80.0-98.0); NRBC Abs Auto 0.000 X10*3/uL (0.0-0.012); NRBC Pct Auto 0.0 /100WBC (0.0-0.2); Platelet Count 175 X10*3/uL (160-400); Red Blood Count 3.92 X10*6/uL (4.60-5.80); White Blood Count 17.6 X10*3/uL (4.8-10.8)
[2025-09-11 06:15] LABS: Anion Gap 12 (12-20); Blood Urea Nitrogen 20 mg/dL (9-16); Calcium 8.3 mg/dL (8.4-10.2); Carbon Dioxide 25 mmol/L (22-29); Chloride 106 mmol/L (96-108); Creatinine Clr Calc Pharmacy 83.8; Estimated Glomerular Filt Rate > 60; Potassium 4.4 mmol/L (3.3-5.1); Sodium 139 mmol/L (135-145)
[2025-09-11 07:41] LABS: Glucose, Whole Blood 112 mg/dL (60-115)
--- NOTE | 2025-09-11 08:03 | HO.POSTANES ---
Post Anesthesia Evaluation Post Anesthesia Evaluation Date of Service: 09/11/25 Vital Signs: Vital Signs Temp Pulse Resp BP Pulse Ox O2 Del Method 09/11/25 04:11 97.7 F 75 18 125/59 L 97 Room Air 09/10/25 23:42 98.4 F 77 18 105/57 L 94 Room Air Anesthesia: Nerve Block and General Mental Status: Awake Pain Control: Satisfactory Nausea/Vomiting: None Hydration: Adequate Anesthesia-Related Issues: No Anes. Related Issues
--- NOTE | 2025-09-11 08:06 | PM.DS ---
DS: Providers Provider Date of Service: 09/11/25 Date of discharge: 09/11/25 Primary care physician: Unknown Physician Consults: 09/10/25 14:08 Consult to Case Management Routine Comment: home with services Consult to Hospitalist Routine Comment: Consulting Provider: [facility] [place] Hospitalists Reason For Exam: routine medical management DS: Diagnosis Discharge Diagnosis (1) Status post reverse total replacement of right shoulder: Status: Acute DS: Summary Hospital Course Hospital Course: The patient underwent a successful Right total shoulder arthroplasty on 09/10/[address] Guadalupe, was transferred to PACU and then to the floor to recover. During their stay, their vitals were stable, afebrile at 97.7. Labs were unremarkable, H/H 11.9/35.1. POD 1 he was started on ASA 81 mg tabs po bid for DVT ppx, they also received Occupation therapy prior to discharge. -Physical Therapy/ Occupational Therapy: -Patient is NWB of the shoulder -Range of Motion: FF 90, ER neutral, ABduction 90 -Strengthening: Periscapular muscles -Pendelums -Sling: remove for dressing and PT exercises Prior to discharge, his dressing was clean dry and intact. The Aquacel dressing should remain intact and dry at all times. Any concerns with the dressing, please contact orthopedic office. No showering. The plan is to be discharged home services Time Attestation Discharge Coordination Time (in mins): 30 Quality: Safe Use of Opioids Does Pt have an Active Cancer Diagnosis on the Problem List?: No Quality: Stroke Does the patient have a stroke diagnosis?: No Physical Exam Vital Signs: Vital Signs: Last Vital Signs Temp 97.7 F 09/11/25 04:11 Pulse 75 09/11/25 04:11 Resp 18 09/11/25 04:11 BP 125/59 L 09/11/25 04:11 Pulse Ox 97 09/11/25 04:11 O2 Del Method Room Air 09/11/25 04:11 O2 Flow Rate 3 09/10/25 13:45 BMI result Body Mass Index 25.1 Const: General: cooperative, healthy appearing and no acute distress Resp: Effort & Inspection: normal respiratory effort and able to speak in complete sentences Cardio: Rate: regular rate Peripheral pulses: Peripheral pulses 2+ throughout GI: Palpation (GI): Soft to palpation Skin: General skin exam: no rashes or lesions noted Extrem: Other: Right shoulder bandage clean, dry and intact. He has good sensation along the anterior deltoid down to the forearm and into the hand and fingers. He can perform wrist flexion and extension along with thum abduction. Pulses intact. DS: Data Data Completed and Pending Pending studies at discharge: Pending at discharge 09/10/25 12:16 Surgical [PTH] Routine Labs on day of discharge: Laboratory Results - last 24 hr 09/10/25 09/11/25 09/11/25 21:49 05:03 07:15 WBC 17.6 H RBC 3.92 L Hgb 11.9 L Hct 35.1 L MCV 89.5 MCH 30.4 MCHC 33.9 RDW 12.2 Plt Count 175 MPV 9.6 Immature Gran % (Auto) 0.6 H Neut % (Auto) 87.1 H Lymph % (Auto) 5.7 L [place] % (Auto) 6.5 Eos % (Auto) 0.0 Baso % (Auto) 0.1 Lymph # (Auto) 1.0 L [place] # (Auto) 1.1 Eos # (Auto) 0.0 Baso # (Auto) 0.0 Abs Immat Gran (auto) 0.10 H Absolute Neuts (auto) 15.3 H Absolute Nucleated RBC 0.000 Nucleated RBC % (auto) 0.0 Sodium 139 Potassium 4.4 Chloride 106 Carbon Dioxide 25 Anion Gap 12 BUN 20 H Creatinine 0.81 Estim Creat Clear Calc 83.8 Estimated GFR > 60 POC Glucose 157 H 112 Fasting Glucose 122 H Calcium 8.3 L D Discharge Plan Discharge Patient Disposition: Home Health Service Referrals: Cheryl Butt PA-C [Physician Mechanical Manufacturing Technician, Orthopedics] - 2 Weeks Referral Note: 09/25/25 11:45 [facility] [place] Orthopedic Surgeons Cheryl Butt PA-C Discharge Medications: New celecoxib 200 mg Capsule 200 mg PO BID 30 Days Qty: 60 0RF acetaminophen 325 mg Tablet 650 mg PO Q6H PRN (Reason: Pain, Mild 1-3,Fever,Headache) 30 Days Qty: 240 0RF docusate sodium 100 mg Capsule 100 mg PO BID 7 Days Qty: 14 0RF oxycodone 5 mg Tablet 5 mg PO Q4H PRN (Reason: Pain, Moderate(Pain Scale 4-6)) 7 Days Qty: 42 0RF Rx Instructions: Partial Fill upon patient request. aspirin 81 mg tablet 81 mg PO BID 42 Days Qty: 84 0RF Continued vitamin B complex Capsule 1 cap PO DAILY magnesium oxide 500 mg magnesium Tablet 500 mg PO DAILY amlodipine-benazepril 10-20 mg capsule 1 cap PO DAILY pravastatin 40 mg tablet 40 mg PO BEDTIME omeprazole 20 mg capsule,delayed release(DR/EC) 20 mg PO DAILY tadalafil [Cialis] 20 mg tablet 20 mg PO DAILY PRN (Reason: Sexual Activity) Rx Instructions: administer approximately 30min before sexual activity; do not use more than 1 dose per 24hrs levothyroxine 112 mcg capsule 112 mcg PO DAILY Held omega 0-ifj-vqq-fish oil [Fish Oil] 1,200 (144-216) mg Capsule 1 cap PO DAILY Hold Instructions: Resume on 10/11/25. Discontinued acetaminophen 325 mg Tablet 650 mg PO Q6H PRN (Reason: Pain) Discharge Orders: Discharge Order (Routine); Ordered 09/11/25 Ordered By: Pradip Mantilla Diet: Regular diet Activity on Discharge: Use cane or walker Activity Restrictions/Additional Instructions: -Bandage/Incision Site Care: -Ice 20mins at a time -Make sure you use a towel or cloth on your skin as a barrier -DO NOT remove the bandage -Keep Bandage clean, dry and intact -Do not get the bandage wet: -No tub bath, pools or hot tubs -If there are any concerns regarding the bandage please call orthopedics: [phone] -Shoulder Precautions: -Refrain from applying pressure on the shoulder, such as pushing off from a chair or leaning on the arm -Avoid reaching behind the body -Avoid reaching across the body -Avoid external rotation -Keep sling on while sleeping -Physical Therapy: -Patient is NWB of the shoulder -Range of Motion: FF 90, ER neutral, ABduction 90 -Strengthening: Periscapular muscles -Pendelums -Sling: remove for dressing and PT exercises -Ankle pumps and incentive spirometry to limit the risk of blood clot -Diet: -Resume regular diet as tolerated. -Drink plenty of fluids and eat a high-fiber foods to avoid constipation -This is a common side effect of pain medication) -Take stool softeners as prescribed -Blood Clot Prevention: -Take the prescribed blood thinner (Aspirin) as directed for 6 weeks -Perform ankle pumps and walk frequently with the walker and assistance if needed -Report calf pain, swelling, or shortness of breath immediately Print Language: Amharic
--- NOTE | 2025-09-11 08:11 | P.F2F_ITS ---
Service Date Service Date: 09/11/25 Encounter Date of encounter: 09/11/25 Reasons for Services Signs and symptoms assessed: Weakness, poor balance, poor gait mechanics Reason for physical therapy: home safety and mobility, therapeutic exercises, restore joint function, gait/transfer training, ADL training and energy conservation Reason for occupational therapy: home safety and mobility, therapeutic exercises, restore joint function, gait/transfer training, ADL training and energy conservation Overseeing Care: Roscoe Guadalupe Homebound: Leaving the home is medically contraindicated at this time without the asist of a device and/or another person due th the listed conditions above and below. Reason homebound: unsteady gait / fall risk, pain with ambulation, poor balance / fall risk and unable to drive Homebound supporting statement: Pt. is considered home bound due to recent surgery. Unable to drive, poor balance, poor gait mechanics. Certification: Based on the above findings, I certify that this patient is confined to the home and needs intermittent penitentiary care, physical therapy and/or speech therapy, or continues to need occupational therapy. The patient is under my care, and I have initiated the establishment of the plan of care. The patient will be followed by a physician who will periodically review the plan of care. Time Spent With Patient Time: Total time managing care of this patient today ____ minutes.
[2025-09-11 08:32] VITALS: BP 114/54; PULSE 67; RESP 18; TEMP 36.2; O2SAT 96
[2025-09-11] MEDS: oxyCODONE HCl ER 10 MG TAB.ER.12H PO (08:57)
[2025-09-11] MEDS: 0.9 % Sodium Chloride Flush 3 ML SYRINGE IVFLUSH (09:01)
--- NOTE | 2025-09-11 09:11 | MHC.CM.PN ---
Addendum entered by Erendira Hammonds 09/11/25 15:28: PA MADE AWARE OF PT GOING HOME WITH OUTPATIENT SERVICES. PT WILL CALL TO SET UP SERVICES WITH CORE WHEN GETS HOME. Original Note: CM MET WITH PT AT BEDSIDE. PT LIVES WITH SPOUSE AND IS FUNCTIONALLY INDEPENDENT AT BASELINE, +DRIVES. NO SERVICES OR DME. + HCP AT HOME PCP DR. SEGUNDO AT [facility]. DP: HOME WITH O.P. SERVICES FOR O.T. PER O.T. RX. PT'S SPOUSE WILL TRANSPORT. PT HAS BEEN MEDICALLY CLEARED FOR DC.
[2025-09-11] MEDS: oxyCODONE HCl Immed Release 5 MG TABLET PO (10:47)
--- NOTE | 2025-09-19 10:43 | W.PM.OPN ---
Operative Note Operative Note Date of Service: 09/10/25 Narrative: Date of Service: 09/10/25 Pre-op diagnosis: Right RTC arthropathy Post-op diagnosis: same Procedure: Reverse total shoulder arthroplasty Implants: Tournier 7b stem/+6 centered tray with 39+9 poly with 25 baseplate and 39 glenosphere Surgeon: Roscoe Guadalupe MD Anesthesia: GETA and regional Was an Derrick Boat Captain used for this Procedure?: Yes Derrick Boat Captain: Cheryl Butt Estimated blood loss (mL): 200 IV fluids (mL): 1,000 Pathology: other Condition: stable Disposition: PACU Patient was brought to the operating room and placed in the beach chair position on the surgical table. The limb was prepped and draped in standard sterile fashion and a time out was called to identify proper site, proper procedure and IV antibiotics per weight were administered. I began by making a deltopectoral incision from the coracoid to the pectoralis insertion. Blunt dissection identified the cephalic vein which was retracted laterally. Blunt dissection was taken down to the 3 sisters which were cauterized. I then made a full-thickness capsulotomy involving the subscapularis. a 1 cm suff was left for repair. The subscap/capsule was then tagged and the arm was externally rotated and extended and the head was dislocated. The humeral head was high riding and small release of the posterior fibers of the rotator cuff was performed. There was no supraspinatus/infraspinatus. Once the head was well visualized a anatomic neck cut was made in approximately 132 degree angle while protecting the posterior and inferior soft tissues. A starter awl was used to identify the canal and then I broached up to a size 7 at 30 degrees of version. The broach was removed and I placed my head protector and turned my attention to the glenoid. Posterior anterior and superior glenoid retractors were placed and the biceps was tenotomized and labral tissue was removed. Based on the preoperative CT and templating a guide pin was placed in approximately 8 degrees of retroversion and neutral inclination. Using a wedge Reamer I reamed down to bleeding bone mostly inferiorly and placed the size 25 glenoid drill guide. Care was taken to protect the inferior soft tissues at all times. My central screw was drilled to a depth of 34 using standard AO techique and a 25 standard baseplate was inserted. The central screw had exceelent purchase. I then placed 2 nonlocking and 2 locking screws circumferentially around the central screw. I had excellent circumferential compression. I then placed a my final 39 glenosphere. I then returned to the humerus where I trialed a 7b stem with a +6 centered tray and a 39+9 poly. I was satisfied with the stability of the implants and the ROM. Once I was satisfied with the range of motion and stability I irrigated copiously. My final humeral implant was assembled on the back table and then inserted in standard fashion. The subscapularis was repaired with fiber wire and a 3min iodine soak was performed after copious irrigation. I closed in a layered fashion with absorbable suture and elmer and the patient was placed in a sterile dressing and an abduction sling. He was extubated brought to recovery room stable condition there were no known complications.
== END 2025-09-11 11:25 | disposition home or self-care (01) ==
LOC: HO.SSS 11:06 → HO.S3 13:52
PROVIDERS: Physician Assistant; PCP Family Medicine; Referring Provider Nurse Practitioner; Visit Provider Orthopaedic Surgery
PROC: (CPT 23472; principal; 2025-09-10 11:50)
DX: M12.811 Other specific arthropathies, not elsewhere classified, right shoulder (principal); Z96.611 Presence of right artificial shoulder joint; I10 Essential (primary) hypertension; E78.00 Pure hypercholesterolemia, unspecified; K22.70 Barrett's esophagus without dysplasia; E06.3 Autoimmune thyroiditis; R73.03 Prediabetes; F43.10 Post-traumatic stress disorder, unspecified; Z85.46 Personal history of malignant neoplasm of prostate; Z92.3 Personal history of irradiation; Z79.899 Other long term (current) drug therapy; Z88.5 Allergy status to narcotic agent; Z91.040 Latex allergy status; Z98.890 Other specified postprocedural states
CPT/HCPCS: 23472; 36415; 73020; 80048; 82947; 85025; 85027; 86850; 86900; 86901; 87640; 87641; 88304; 88311; 93005; 97165; A6260; C1713; C1776; J0131; J0665; J0690; J1100; J1171; J2003; J2250; J2405; J2704; J3010; J7120

== ENCOUNTER → 2025-09-10 07:48 | Outpatient (BNV) | payer OTHER, SELFPAY | PROVIDERS: Referring Provider Nurse Practitioner; Visit Provider Physician Assistant | DX: M12.811 Other specific arthropathies, not elsewhere classified, right shoulder (principal) | CPT/HCPCS: 99222 ==

== ENCOUNTER → 2025-09-10 07:48 | Outpatient (BNV) | payer OTHER, SELFPAY | PROVIDERS: Referring Provider Nurse Practitioner; Visit Provider Orthopaedic Surgery | DX: Z47.1 Aftercare following joint replacement surgery (principal); Z96.611 Presence of right artificial shoulder joint | CPT/HCPCS: 23472; 99024; G0180 ==

== ENCOUNTER → 2025-09-11 08:30 | Outpatient (BNV) | payer OTHER, SELFPAY | PROVIDERS: Referring Provider Nurse Practitioner; Visit Provider Radiology Diagnostic Radiology | DX: Z96.611 Presence of right artificial shoulder joint (principal) | CPT/HCPCS: 73020 ==

== ENCOUNTER 2025-09-25 09:05 | Outpatient (REF) | payer OTHER, SELFPAY ==
--- NOTE | ~2025-09-25 | XR_ITS ---
EXAMINATION: XR SHOULDER, RIGHT CLINICAL INFORMATION: M25.519 - Pain in unspecified shoulder COMPARISON: September 11, 2025. TECHNIQUE: Single AP view of the right shoulder. FINDINGS: Metallic prosthesis with a glenoid component and a humeral component well-seated in the osseous structures. There is probably loosening along the margin of the prosthesis. No gross malalignment. Skin elmer overlapping anatomic prosthesis component and coracoid process. Degenerative changes in the acromioclavicular joint. XR/XR shoulder RT min 2V IMPRESSION: Total arthroplasty prosthesis, right glenohumeral joint with the questionable loosening Electronically signed by: Gautam Olivares MD 09/25/2025 12:17 PM EST RP
--- OUTSIDE RECORDS SUMMARY | 2025-09-26 09:23 | XMS_ITS | Encounter Summary ---
Author Organization [facility] Address [address] [place] [address] Phone Care Team Providers Care Knit Goods Cutter Hand Name Role Phone Stephanie Reyes MD Primary Care Provider [phone] Encounter Details Date Type Department Care Team (Late st Contact Info) Description 12/04/2020 Procedure Pass [facility]' Sourcing Assistant [place] [address] [place] [address] Social History Tobacco Use Types Packs/Day Years [...] on filedocumented in this encounter Care Teams Knit Goods Cutter Hand Relationship Specialty Start Date End Date Stephanie Reyes MD [address] [place] [address] PCP - General Internal Medicine 11/24/20 documented as of this encounter Additional Source Comments The information contained in this document represents components of the legal health record. It is not the complete legal health record.[facility]
--- OUTSIDE RECORDS SUMMARY | 2025-09-26 09:23 | XMS_ITS | Clinical Summary ---
Author Organization [facility] Address [address] [place] [phone] Phone Care Team Providers Care Merchandise Examiner Name Role Phone Maninder Mckeon MD Primary [...] Problem Noted Date Diagnosed Date Alcohol dependence ([facility] V24, [facility] V28) Chronic back pain 03/04/2021 Impaired [...] COLONOSCOPY; COMMENT: colon polyp ESOPHAGOGASTRODUODENOSCOPY 2018 PROCEDURE: [place] ESOPHAGOGASTRODUODENOSCOPY TRANSORAL DIAGNOSTIC; COMMENT: sullivan's esophagus Medical History Medical History Date Comments Hyperlipidemia DX:Hyperlipidemi a 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 DX:Neoplasm of uncertain beh avior of prostate Alcohol dependence ([facility] V24, [facility] V28) 03/04/2021 DX:Alcohol dependence ([facility]) Anxiety 01/13/2021 DX:Anxiety Sullivan's esophagus without [...] age to complete this topic Insurance MEDICARE [facility] Care Teams Merchandise Examiner Relationship Specialty Start Date End Date Maninder Mckeon MD [address] [place] PCP - General 12/12/23
--- OUTSIDE RECORDS SUMMARY | 2025-09-26 09:23 | XMS_ITS | Clinical Summary ---
Author Organization [facility] Address [address] [facility] [address] [place] [address] Phone Care Team Providers Care Escapement Maker Name Role Phone Stephanie Reyes MD Primary Care Provider [phone] Medications No known medications Social History Tobacco [...] file Insurance MEDICARE PART A & B [facility] MEDICARE PART A & B [facility] MEDICARE PART A & B MEDICARE PART A & B MEDICARE PART A & B MEDICARE PART A & B MEDICARE PART A & B Member Subscriber Plan / Payer (Ef fective 2018-Present) Name:Tirso Witt Member ID:[id number] Relation to Subscriber:Self Name:Tirso Witt Subscriber ID:[id number] Payer ID:[id number] Group ID:Not on file Type:Medicare Address: [employer] [address] MEDICARE PART A & B MEDICARE PART A & B [facility] Care Teams Escapement Maker Relationship Specialty Start Date End Date Stephanie Reyes MD [address] [place] [address] PCP - General Internal Medicine 11/24/20 Additional Source Comments The information contained in this document represents components of the legal health record. It is not the complete legal health record.[facility]
--- OUTSIDE RECORDS SUMMARY | 2025-09-26 09:23 | XMS_ITS | Encounter Summary ---
Author Organization [facility] Address [address] [place] [address] Phone Care Team Providers Care Personnel Administrator Name Role Phone Stephanie Reyes MD Primary Care Provider [phone] Encounter Details Date Type Department Care Team (Latest Contact Info) Description 12/02/2020 Transcribe Orders [facility] and Women's [address] [address] [address] [place] [phone] [email or web address] Prostate cancer (Primary Dx) Social History Tobacco [...] prostate documented in this encounter Care Teams Personnel Administrator Relationship Specialty Start Date End Date Stephanie Reyes MD [address] [place] [address] PCP - General Internal Medicine 11/24/20 documented as of this encounter Additional Source Comments The information contained in this document represents components of the legal health record. It is not the complete legal health record.[facility]
== END 2025-09-25 09:06 | disposition home or self-care (01) ==
LOC: HO.HOSX 09:05
PROVIDERS: Visit Provider Physician Assistant
DX: Z47.1 Aftercare following joint replacement surgery (principal); Z96.611 Presence of right artificial shoulder joint; Z79.899 Other long term (current) drug therapy; M25.512 Pain in left shoulder; M25.511 Pain in right shoulder
CPT/HCPCS: 73030; 99212

== ENCOUNTER 2025-09-25 11:24 | Outpatient (AMB) | payer OTHER, SELFPAY ==
--- NOTE | 2025-09-25 11:48 | A.OFFVIS_ITS ---
Intake Visit Reasons: 2WKPO: R rTSA w/NE 09/10/25 Intake Note: Tirso is a 74 year old right hand dominant male who presents today for a post operative appointment status post right reverse total shoulder arthroplasty on on 09/10/[address] Guadalupe. Patient reports he is doing well. No pain at the moment with the sling on. Allergies latex Allergy (Verified 09/25/25 11:51) Rash oxycodone (From Percocet) Adverse Reaction (Verified 09/25/25 11:51) Nausea and Vomiting HPI HPI 2WKPO: R rTSA w/NE 09/10/25: Details: Mr. Chahal is a 74-year-old male who presents to the office today s/p Right reverse total shoulder arthroplasty with sub scapularis repair performed on 09/10/[address] Guadalupe. Patient is attending physical therapy here at [facility]. He is wearing the abduction sling positioned appropriately. Pain is well managed with Tylenol. No additional complaints. [facility] Medical History Abnormal EKG Prediabetes Vertigo Prostate cancer Hx of radiation therapy Arthritis Lumbar herniated disc Back pain Anemia Constipation Thyroid disease Barretts esophagus GERD (gastroesophageal reflux disease) Concussion Elevated cholesterol HTN (hypertension) Surgical History History of tonsillectomy and adenoidectomy Hx of hand surgery Hx of cervical spine surgery Hx of prostatectomy History of esophagogastroduodenoscopy (EGD) H/O colonoscopy Social History Household Members: Significant Other Housing: House Are you a primary transitional care nurse to a significant other at home: No Do you presently have visiting nurse or other home services: No Alcohol intake: current Alcohol intake frequency: holidays/special occasions only Patient Tobacco Use Status: Never used Tobacco service: Yes Current occupational status: employed 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 [place] intact. No surrounding erythema or drainage. No signs of infection. 45 degrees of FF and ABD. ER was not attempted due to subscap repair. Sensation intact. Psych Appearance: grossly normal Mental Status: mental status grossly normal Attitude: cooperative Assessment & Plan Assessment & Plan (1) Status post reverse total replacement of right shoulder: Code(s): Z96.611 - Presence of right artificial shoulder joint Category: Surgical Plan Mr. Chahal is a 74-year-old male who presents to the office today s/p Right reverse total shoulder arthroplasty with sub scapularis repair performed on 09/10/[address] Guadalupe. Patient is attending physical therapy here at [facility]. He is wearing the abduction sling positioned appropriately. Pain is well managed with Tylenol. No additional complaints. While in the office today, africa were removed and Steri-Strips were applied. Patient was placed back into the abduction sling. He was instructed to remain in this at all times except for bathing and performing physical therapy exercises. He will remain in the sling for roughly 6 weeks postoperatively. A void external rotation due to subscap repair. He will follow up in [address] Guadalupe, sooner if needed. X-rays of the right shoulder which were obtained while in the office today and were reviewed by me, Cheryl Butt PA-C, revealed intact reverse total shoulder arthroplasty. Orders: Orders XR shoulder RT min 2V Today M25.519 - Pain in unspecified shoulder Coding Level of Care Code Global (77912) Diagnoses Status post reverse total replacement of right shoulder Z96.611
--- OUTSIDE RECORDS SUMMARY | 2025-09-25 17:38 | XMS_ITS | Encounter Summary ---
Author Organization [facility] Address [address] [place] [address] Phone Care Team Providers Care Foil Operator Name Role Phone Stephanie Reyes MD Primary Care Provider [phone] Encounter Details Date Type Department Care Team (Latest Contact Info) Description 12/02/2020 Transcribe Orders [facility] [address] [address] [place] [address] [place] [phone] [email or web address] Prostate cancer (Primary Dx) Social History [...] prostate documented in this encounter Care Teams Foil Operator Relationship Specialty Start Date End Date Stephanie Reyes MD [address] [place] [address] PCP - General Internal Medicine 11/24/20 documented as of this encounter Additional Source Comments The information contained in this document represents components of the legal health record. It is not the complete legal health record.[facility]
--- OUTSIDE RECORDS SUMMARY | 2025-09-25 17:38 | XMS_ITS | Encounter Summary ---
Author Organization [facility] Address [address] [place] [address] Phone Care Team Providers Care Charge Preparation Technician Name Role Phone Stephanie Reyes MD Primary Care Provider [phone] Encounter Details Date Type Department Care Team (Late st Contact Info) Description 12/04/2020 Procedure Pass [facility]' Leasing Sales Consultant [place] [address] [place] [address] Social History Tobacco Use Types Packs/Day Years [...] on filedocumented in this encounter Care Teams Charge Preparation Technician Relationship Specialty Start Date End Date Stephanie Reyes MD [address] [place] [address] PCP - General Internal Medicine 11/24/20 documented as of this encounter Additional Source Comments The information contained in this document represents components of the legal health record. It is not the complete legal health record.[facility]
--- OUTSIDE RECORDS SUMMARY | 2025-09-25 17:38 | XMS_ITS | Clinical Summary ---
Author Organization [facility] Address [address] [place] [phone] Phone Care Team Providers Care Neurology Director Name Role Phone Maninder Mckeon MD Primary [...] Problem Noted Date Diagnosed Date Alcohol dependence ([facility] V24, [facility] V28) Chronic back pain 03/04/2021 Impaired fasting [...] COLONOSCOPY; COMMENT: colon polyp ESOPHAGOGASTRODUODENOSCOPY 2018 PROCEDURE: [place] ESOPHAGOGASTRODUODENOSCOPY TRANSORAL DIAGNOSTIC; COMMENT: sullivan's esophagus Medical History Medical History Date Comments Hyperlipidemia DX:Hyperlipidemi a 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 DX:Neoplasm of uncertain beh avior of prostate Alcohol dependence ([facility] V24, [facility] V28) 03/04/2021 DX:Alcohol dependence ([facility]) Anxiety 01/13/2021 DX:Anxiety 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 [...] age to complete this topic Insurance MEDICARE [facility] Care Teams Neurology Director Relationship Specialty Start Date End Date Maninder Mckeon MD [address] [place] PCP - General 12/12/23
--- OUTSIDE RECORDS SUMMARY | 2025-09-25 17:38 | XMS_ITS | Clinical Summary ---
Author Organization [facility] Address [address] [place] [address] Phone Care Team Providers Care Turkey Farmer Name Role Phone Stephanie Reyes MD Primary [...] file Insurance MEDICARE PART A & B [facility] MEDICARE PART A & B [facility] MEDICARE PART A & B MEDICARE PART A & B MEDICARE PART A & B MEDICARE PART A & B MEDICARE PART A & B Member Subscriber Plan / Payer (Ef fective 2018-Present) Name:Tirso Witt Member ID:[id number] Relation to Subscriber:Self Name:Tirso Witt Subscriber ID:[id number] Payer ID:[id number] Group ID:Not on file Type:Medicare Address: [place] [address] MEDICARE PART A & B MEDICARE PART A & B [facility] Care Teams Turkey Farmer Relationship Specialty Start Date End Date Stephanie Reyes MD [address] [place] [address] PCP - General Internal Medicine 11/24/20 Additional Source Comments The information contained in this document represents components of the legal health record. It is not the complete legal health record.[facility]
== END 2025-09-25 12:06 | disposition home or self-care (01) ==
LOC: HO.HOS 11:25
PROVIDERS: Visit Provider Physician Assistant
DX: Z96.611 Presence of right artificial shoulder joint (principal)
CPT/HCPCS: 99024

== ENCOUNTER → 2025-09-25 11:32 | Outpatient (BNV) | payer OTHER, SELFPAY | PROVIDERS: Visit Provider Radiology Diagnostic Radiology | DX: M25.511 Pain in right shoulder (principal); Z96.611 Presence of right artificial shoulder joint | CPT/HCPCS: 73030 ==

== ENCOUNTER 2025-10-23 09:33 | Outpatient (REF) | payer OTHER, SELFPAY ==
--- NOTE | ~2025-10-23 | XR_ITS ---
EXAMINATION: XR SHOULDER, RIGHT CLINICAL INFORMATION: M25.519 - Pain in unspecified shoulder COMPARISON: X-ray 09/25/2025, 09/11/2025 TECHNIQUE: 2 frontal views of the right shoulder. FINDINGS: Redemonstrated is total reverse shoulder arthroplasty. Expected articulation and alignment of the arthroplasty components. Hardware is intact. No suspicious perihardware lucency seen. No acute periprosthetic fracture seen. XR/XR shoulder RT min 2V IMPRESSION: Total reverse shoulder arthroplasty in stable position and alignment. No definite complications seen. Electronically signed by: Markel Falk MD 10/23/2025 04:26 PM NICOLE
--- OUTSIDE RECORDS SUMMARY | 2025-10-23 11:03 | XMS_ITS | Clinical Summary ---
Author Organization [facility] Address [address] [place] [phone] Phone Care Team Providers Care Dry Starch Supervisor Name Role Phone Maninder Mckeon MD Primary [...] uncertain beh avior of prostate Alcohol dependence ([facility], [facility] V28) 03/04/2021 DX:Alcohol dependence ([facility]) Anxiety 01/13/2021 DX:Anxiety Sullivan's [...] on file Sexual Orientation Not on file Last Filed Vital Signs Vital Sign Reading [...] of 2 - Risk 2-dose series) 1970 Abdominal Aortic Aneurysm (AAA) Screen 10/16/2022 Cholesterol Screening (Lipid Panel) 10/16/2022 Falls Risk Assessment 10/16/2022 Hepatitis C Screening 10/16/2022 Medicare Annual Wellness Visit 10/16/2022 Social Influencers of Health Screening 10/16/2022 Hypertension/CHF/CAD Annual BMP Blood Test 10/22/2022 DTaP,Tdap,and Td Vaccines (6 - Td or Tdap) 11/06/2024 11/06/2014, 11/06/2014, 11/20/2012, Additional history exists Depression Screening 11/06/2024 COVID-19 Vaccine ( season) 2025 07/19/2024, 08/05/2022, 07/19/2022, Additional history exists Influenza Vaccine (#1) 2025 , 11/06/2023, 08/06/2023, Additional history exists Colorectal Cancer Screening: Colonoscopy 03/24/2026 Pneumococcal Vaccine: [...] age to complete this topic Insurance MEDICARE [facility] Care Teams Dry Starch Supervisor Relationship Specialty Start Date End Date Maninder Mckeon MD [address] [place] PCP - General 12/12/23
--- OUTSIDE RECORDS SUMMARY | 2025-10-23 11:03 | XMS_ITS | Encounter Summary ---
Author Organization [facility] Address [address] [address] [address] [place] [address] Phone Care Team Providers Care Traffic Warehouse Supervisor Name Role Phone Stephanie Reyes MD Primary Care Provider [phone] Encounter Details Date Type Department Care Team (Latest Contact Info) Description 12/02/2020 Transcribe Orders [facility] and Women's [address] [address] [address] [place] [phone] [email or web address] Prostate cancer (Primary Dx) Social History [...] prostate documented in this encounter Care Teams Traffic Warehouse Supervisor Relationship Specialty Start Date End Date Stephanie Reyes MD [address] [place] [address] PCP - General Internal Medicine 11/24/20 documented as of this encounter Additional Source Comments The information contained in this document represents components of the legal health record. It is not the complete legal health record.[facility]
--- OUTSIDE RECORDS SUMMARY | 2025-10-23 11:03 | XMS_ITS | Encounter Summary ---
Author Organization [facility] Address [address] [place] [address] Phone Care Team Providers Care Political Anthropologist Name Role Phone Stephanie Reyes MD Primary Care Provider [phone] Encounter Details Date Type Department Care Team (Late st Contact Info) Description 12/04/2020 Procedure Pass [facility]' Gas Inspector [place] [address] [place] [address] Social History Tobacco Use Types Packs/Day Years [...] on filedocumented in this encounter Care Teams Political Anthropologist Relationship Specialty Start Date End Date Stephanie Reyes MD [address] [place] [address] PCP - General Internal Medicine 11/24/20 documented as of this encounter Additional Source Comments The information contained in this document represents components of the legal health record. It is not the complete legal health record.[facility]
--- OUTSIDE RECORDS SUMMARY | 2025-10-23 11:03 | XMS_ITS | Clinical Summary ---
Author Organization [facility] Address [address] [facility] [address] [place] [address] Phone Care Team Providers Care Catalyst Operator Gasoline Name Role Phone Stephanie Reyes MD Primary [...] file Insurance MEDICARE PART A & B [facility] MEDICARE PART A & B Member Subscriber Plan / Payer (Ef fective 2018-Present) Name:Tirso Witt Member ID:[id number] Relation to Subscriber:Self Name:Tirso Witt Subscriber ID:[id number] Payer ID:[id number] Group ID:Not on file Type:Medicare Address: [employer] [facility] [address] [place] [phone] [facility] MEDICARE PART A & B MEDICARE PART A & B MEDICARE PART A & B MEDICARE PART A & B MEDICARE PART A & B Member Subscriber Plan / Payer (Ef fective 2018-Present) Name:Tirso Witt Member ID:[id number] Relation to Subscriber:Self Name:Tirso Witt Subscriber ID:[id number] Payer ID:[id number] Group ID:Not on file Type:Medicare Address: [employer] [address] MEDICARE PART A & B MEDICARE PART A & B Member Subscriber Plan / Payer (Ef fective 2018-Present) Name:Tirso Witt Member ID:[id number] Relation to Subscriber:Self Name:Tirso Witt Subscriber ID:[id number] Payer ID:[id number] Group ID:Not on file Type:Medicare Address: [employer] [facility] [address] [facility] [place] [phone] [facility] Care Teams Catalyst Operator Gasoline Relationship Specialty Start Date End Date Stephanie Reyes MD [address] [place] [address] PCP - General Internal Medicine 11/24/20 Additional Source Comments The information contained in this document represents components of the legal health record. It is not the complete legal health record.[facility]
== END 2025-10-23 09:34 | disposition home or self-care (01) ==
LOC: HO.HOSX 09:33
PROVIDERS: Visit Provider Orthopaedic Surgery
DX: Z47.1 Aftercare following joint replacement surgery (principal); M25.511 Pain in right shoulder; Z96.611 Presence of right artificial shoulder joint
CPT/HCPCS: 73030

== ENCOUNTER 2025-10-23 10:59 | Outpatient (AMB) | payer OTHER, SELFPAY ==
--- NOTE | 2025-10-23 11:17 | MHC.OFFVIS ---
Intake Visit Reasons: 6WKPO: R rTSA w/NE 09/10/25 Intake Note: Tirso is a 74 year old right hand dominant male who presents today for a post operative appointment about 6 weeks s/p right reverse total shoulder arthroplasty 09/10/25 . He is working with [facility]. Patient reports that he is doing well, he has not progressed much in physical therapy as they have had questions on protocols. he presented us with a [facility] - Reverse Total Shoulder Arthtroplasty Protocol with Dr. Guadalupe has confirmed is a good protocol for him to follow He is asking abotu sling use as he would like to was his sling. Allergies latex Allergy (Verified 09/25/25 11:51) Rash oxycodone (From Percocet) Adverse Reaction (Verified 09/25/25 11:51) Nausea and Vomiting HPI HPI 6WKPO: R rTSA w/NE 09/10/25: Details: Tirso is a 74 year old right hand dominant male who presents today for a post operative appointment about 6 weeks s/p right reverse total shoulder arthroplasty 09/10/25 . He is working with [facility]. Patient reports that he is doing well, he has not progressed much in physical therapy as they have had questions on protocols. he presented us with a [facility] - Reverse Total Shoulder Arthtroplasty Protocol with Dr. Guadalupe has confirmed is a good protocol for him to follow He is asking abotu sling use as he would like to was his sling. HPI Comments Details: Interval History The patient is a 75-year-old male presenting for follow-up for right reverse total shoulder arthroplasty (rTSA) performed on 09/10/25. The patient reports feeling okay overall but has not engaged in much therapy yet as they were waiting for a protocol from the provider. He notes that the shoulder feels better than before the surgery, although he still experiences some limitations in movement. The patient has been performing some exercises, such as moving the wrist up and down, but has not started formal therapy. He continues to wear a sling to bed for comfort, although he has been advised that it is no longer necessary during the day. Results - X-ray of the right shoulder shows good positioning of the prosthesis with no signs of loosening or complications. [facility] Medical History Abnormal EKG Prediabetes Vertigo Prostate cancer Hx of radiation therapy Arthritis Lumbar herniated disc Back pain Anemia Constipation Thyroid disease Barretts esophagus GERD (gastroesophageal reflux disease) Concussion Elevated cholesterol HTN (hypertension) Surgical History History of tonsillectomy and adenoidectomy Hx of hand surgery Hx of cervical spine surgery Hx of prostatectomy History of esophagogastroduodenoscopy (EGD) H/O colonoscopy Social History Household Members: Significant Other Housing: House Are you a primary healthcare management to a significant other at home: No Do you presently have visiting nurse or other home services: No Alcohol intake: current Alcohol intake frequency: holidays/special occasions only Patient Tobacco Use Status: Never used Tobacco service: Yes Current occupational status: employed 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 - Musculoskeletal: Right shoulder forward flexion to 100 degrees, abduction to 70 degrees with scapular recruitment, external rotation to 15 degrees. Incision is well healed. Results Reviewed Results Reviewed: I personally reviewed relevant radiographs. Right total shoulder arthroplasty in expected post operative position with no hardware complications or evidence of loosening Assessment & Plan Assessment & Plan (1) Status post reverse total replacement of right shoulder: Code(s): Z96.611 - Presence of right artificial shoulder joint Category: Surgical Plan Plan 1. Right Reverse Total Shoulder Arthroplasty (Rtsa) Post-Operative Follow-Up Continue with the current rehabilitation protocol, emphasizing gradual increase in shoulder mobility exercises. Discontinue the use of the sling during the day, but it may be used at night for comfort as needed. Schedule a follow-up appointment in six weeks to assess progress and adjust the rehabilitation plan as necessary. Discussion Notes The patient was informed about the importance of continuing rehabilitation exercises to improve shoulder function and mobility. It was discussed that the sling is no longer necessary during the day, but can be used at night for comfort. The patient expressed understanding of the rehabilitation plan and agreed to follow the outlined protocol. Orders: Orders XR shoulder RT min 2V Today M25.519 - Pain in unspecified shoulder Coding Level of Care Code Global (28312) Diagnoses Status post reverse total replacement of right shoulder Z96.611
== END 2025-10-23 11:43 | disposition home or self-care (01) ==
LOC: HO.HOS 10:59
PROVIDERS: Visit Provider Orthopaedic Surgery
DX: Z96.611 Presence of right artificial shoulder joint (principal)
CPT/HCPCS: 99024

== ENCOUNTER → 2025-10-23 11:09 | Outpatient (BNV) | payer OTHER, SELFPAY | PROVIDERS: Visit Provider Radiology Diagnostic Ultrasound | DX: M25.511 Pain in right shoulder (principal); Z96.611 Presence of right artificial shoulder joint | CPT/HCPCS: 73030 ==

== ENCOUNTER → 2025-10-29 10:12 | Outpatient (BNVA) | payer OTHER, SELFPAY | DX: Z47.1 Aftercare following joint replacement surgery (principal); T81.41XA Infection following a procedure, superficial incisional surgical site, initial encounter; Z96.611 Presence of right artificial shoulder joint | CPT/HCPCS: 99212 ==

== ENCOUNTER 2025-11-03 09:22 | Outpatient (AMB) | payer OTHER, SELFPAY ==
--- NOTE | 2025-11-03 09:26 | MHC.OFFVIS ---
Intake Visit Reasons: P/O R rTSA w/NE 09/10/25-wound check Intake Note: Tirso is a 75 year old male who presents today as a post op: right TSA w/NE 09/10/25. At last visit on 10/23/25 he was told to continue with exercises and to wear the sling at night time. At today's visit he states that his exercises are going well and that his ROM is slowly improving. Allergies latex Allergy (Verified 10/29/25 10:20) Rash oxycodone (From Percocet) Adverse Reaction (Verified 10/29/25 10:20) Nausea and Vomiting HPI HPI P/O R rTSA w/NE 09/10/25-wound check: Details: Tirso is a 75 year old male who presents today as a post op: right TSA w/NE 09/10/25. At last visit on 10/23/25 he was told to continue with exercises and to wear the sling at night time. At today's visit he states that his exercises are going well and that his ROM is slowly improving. Patient states that the previously noted spot has diminished in size, and the redness has all but resolved. No other acute complaints or concerns at this time. [facility] Medical History Abnormal EKG Prediabetes Vertigo Prostate cancer Hx of radiation therapy Arthritis Lumbar herniated disc Back pain Anemia Constipation Thyroid disease Barretts esophagus GERD (gastroesophageal reflux disease) Concussion Elevated cholesterol HTN (hypertension) Surgical History History of tonsillectomy and adenoidectomy Hx of hand surgery Hx of cervical spine surgery Hx of prostatectomy History of esophagogastroduodenoscopy (EGD) H/O colonoscopy Social History Household Members: Significant Other Housing: House Are you a primary pet caretaker to a significant other at home: No Do you presently have visiting nurse or other home services: No Alcohol intake: current Alcohol intake frequency: holidays/special occasions only Patient Tobacco Use Status: Never used Tobacco service: Yes Current occupational status: employed 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 Skin: There is a small prominent area in the most superior aspect of the incision site, decreased in size with no further surrounding redness, no tenderness to palpation of the area. - Musculoskeletal: Right shoulder forward flexion to 100 degrees, abduction to 70 degrees with scapular recruitment, external rotation to 15 degrees. Incision is well healed. Assessment & Plan Assessment & Plan (1) Postoperative abscess involving suture: Code(s): T81.41XA - Infection following a procedure, superficial incisional surgical site, initial encounter Category: Medical (2) Status post reverse total replacement of right shoulder: Code(s): Z96.611 - Presence of right artificial shoulder joint Category: Surgical Plan 1. Potential small suture abscess of the right shoulder incision status post right reverse total shoulder arthroplasty DOS 09/10/2025 No further antibiotics indicated Patient was educated to continue working on range of motion of the right shoulder Continue working with therapy Patient should call us if he notices worsening of any infectious symptoms Follow-up for previously scheduled postoperative appointment with Dr. Guadalupe, sooner with any acute concerns Coding Level of Care Code Global (77037) Diagnoses Postoperative abscess involving suture T81.41XA Status post reverse total replacement of right shoulder Z96.611
--- OUTSIDE RECORDS SUMMARY | 2025-11-03 09:50 | XMS_ITS | Clinical Summary ---
Author Organization [facility] Address [address] [place] [phone] Phone Care Team Providers Care Produce Team Member Name Role Phone Maninder Mckeon MD Primary [...] COLONOSCOPY; COMMENT: colon polyp ESOPHAGOGASTRODUODENOSCOPY 2018 PROCEDURE: CT ESOPHAGOGASTRODUODENOSCOPY TRANSORAL DIAGNOSTIC; COMMENT: sullivan's esophagus Medical History Medical History Date Comments Hyperlipidemia DX:Hyperlipidemi a 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 DX:Neoplasm of uncertain beh avior of prostate Alcohol dependence ([facility] V24, [facility] V28) 03/04/2021 DX:Alcohol dependence ([facility]) Anxiety 01/13/2021 DX:Anxiety Usllivan's esophagus without dysplasia 01/13/2021 DX:Sullivan's esophagus without [...] age to complete this topic Insurance MEDICARE [facility] ADMIN[facility] Care Teams Produce Team Member Relationship Specialty Start Date End Date Maninder Mckeon MD [address] [place] PCP - General 12/12/23
--- OUTSIDE RECORDS SUMMARY | 2025-11-03 09:50 | XMS_ITS | Clinical Summary ---
Author Organization [facility] Address [address] [facility] [address] [place] [address] Phone Care Team Providers Care Business Account Specialist Name Role Phone Stephanie Reyes MD Primary Care Provider [phone] Medications No known medications Social History Tobacco [...] file Insurance MEDICARE PART A & B [facility] MEDICARE PART A & B [facility] MEDICARE PART A & B MEDICARE PART A & B MEDICARE PART A & B MEDICARE PART A & B MEDICARE PART A & B Member Subscriber Plan / Payer (Ef fective 2018-Present) Name:Tirso Witt Member ID:[id number] Relation to Subscriber:Self Name:Tirso Witt Subscriber ID:[id number] Payer ID:[id number] Group ID:Not on file Type:Medicare Address: [employer] [address] MEDICARE PART A & B MEDICARE PART A & B [facility] Care Teams Business Account Specialist Relationship Specialty Start Date End Date Stephanie Reyes MD [address] [place] [address] PCP - General Internal Medicine 11/24/20 Additional Source Comments The information contained in this document represents components of the legal health record. It is not the complete legal health record.[facility]
--- OUTSIDE RECORDS SUMMARY | 2025-11-03 09:50 | XMS_ITS | Encounter Summary ---
Author Organization [facility] Address [address] [place] [address] Phone Care Team Providers Care Doctor Of Nursing Practice Name Role Phone Stephanie Reyes MD Primary Care Provider [phone] Encounter Details Date Type Department Care Team (Latest Contact Info) Description 12/02/2020 Transcribe Orders [facility] and Women's [address] [address] [address] [place] [phone] [email or web address] Prostate cancer (Primary Dx) Social History [...] prostate documented in this encounter Care Teams Doctor Of Nursing Practice Relationship Specialty Start Date End Date Stephanie Reyes MD [address] [place] [address] PCP - General Internal Medicine 11/24/20 documented as of this encounter Additional Source Comments The information contained in this document represents components of the legal health record. It is not the complete legal health record.[facility]
--- OUTSIDE RECORDS SUMMARY | 2025-11-03 09:50 | XMS_ITS | Encounter Summary ---
Author Organization [facility] Address [address] [place] [address] Phone Care Team Providers Care Mold Washer Name Role Phone Stephanie Reyes MD Primary Care Provider [phone] Encounter Details Date Type Department Care Team (Late st Contact Info) Description 12/04/2020 Procedure Pass [facility]' Web Development Manager [employer] [address] [place] [address] Social History Tobacco Use Types Packs/Day Years [...] on filedocumented in this encounter Care Teams Mold Washer Relationship Specialty Start Date End Date Stephanie Reyes MD [address] [place] [address] PCP - General Internal Medicine 11/24/20 documented as of this encounter Additional Source Comments The information contained in this document represents components of the legal health record. It is not the complete legal health record.[facility]
== END 2025-11-03 10:30 | disposition home or self-care (01) ==
LOC: HO.HOS 09:22
DX: T81.41XA Infection following a procedure, superficial incisional surgical site, initial encounter (principal); Z96.611 Presence of right artificial shoulder joint
CPT/HCPCS: 99024

== ENCOUNTER → 2025-11-03 09:22 | Outpatient (BNVA) | payer OTHER, SELFPAY | DX: Z47.1 Aftercare following joint replacement surgery (principal); T81.41XD Infection following a procedure, superficial incisional surgical site, subsequent encounter; Z96.611 Presence of right artificial shoulder joint | CPT/HCPCS: 99212 ==